=== PATIENT | male | born 1945 | race Caucasian/White ===

== ENCOUNTER 2016-08-22 03:47 | Inpatient (IN) | payer OTHER ==
--- NOTE | 2016-08-22 04:04 | EDPRACDOC ---
- General Information Stated Complaint: BREATHING DIFFICULTY Time Seen by Provider: 08/22/16 03:52 Information Source: Sql Database Programmer Mode Of Arrival: Ambulance Allergies/Adverse Reactions: Allergies Allergy/AdvReac Type Severity Reaction Status Date / Time No Known Allergies Allergy Verified 08/22/16 04:09 - History of Present Illness Onset: SPECIAL SERVICE OFFICER Exact Onset of Symptoms: Unknown HPI: EMS CALLED TO LONG TERM DUE TO MS CHANGE. O2 SAT 83% ON PT'S NL 3L. O2 INC TO 6L EN ROUTE. PT VERY SOMNOLENT AND IS UNABLE TO GIVE ANY HX. Symptoms Currently: Reports: Still Present Altered Quality: Reports: Decreased Alertness Altered Severity: Reports: Severe ED Past Medical History - Patient Medical History Cardiac History: Reports: Hypertension, Hypercholesterolemia Respiratory History: Reports: COPD (3L NC) GI/ History: Reports: Gastroesophageal Reflux, BPH Musculoskeletal History: Reports: Gout Psychological History: Reports: Depression, Anxiety Systemic History: Reports: Anemia Additional Past Medical History: DYSPHAGIA, IDIOPATHIC PROGRESSIVE POLYNEUROPATHY, CHRONIC PAIN, WHEELCHAIR BOUND, PVD Surgical History: Reports: Other (PT UNABLE TO SAY) - Social Medical History Smoking Status: Current status unknown Lives In: Other (LONG TERM) EDM Review of Systems - Review of Systems ROS Unobtainable: Yes Review of systems cannot be obtained due to the patient's medical condition - Physical Exam Constitutional: Decreased Consciousness, Somnolent Oriented to: Unable to Test Last recorded Vital Signs: Oxygen Pulse Oxygen Saturation O2 Device Oxygen Flow Rate Fraction of Inspired Oxygen ( FIO2) - HEENT Head: Normal ( normocephalic) Eye Exam: Normal (PERRL, EOMI, Sclera white) Oropharynx: Normal (Pharynx:Moist without exudate,Gums-no swelling) ENT EAC: Normal TMJ: Normal Nose: No Symptoms Reported (septum midline) Neck: Normal (FROM, trachea at midline) - Respiratory/Cardiovascular Respiratory: Normal - CTA (BBS clear to auscultation without adventitious sounds ) Cardiovascular: Normal (RRR without murmur, gallop or rub) - GI Auscultation: Normal (NABS) Palpation: Normal (Soft,No rebound or guarding, non distended) Tenderness: Non tender Bartholomew's Sign: Negative - Musculoskeletal Back: Normal (Non-Tender) Extremities: Normal (Normal tone, Pulses 2+ No cyanosis or edema, FROM) - Integumentary Skin: Normal, Warm, Dry Lymphatics: Normal (no adenopathy) - Neurologic Memory Impaired: Unable to Test Motor Function: Unable to Test Cranial Nerve: Unable to Test Cerebellar: Unable to Test - Results 08/22/16 04:00 08/22/16 04:00 - EKG EKG #1 EKG Time: 03:59 -: Yes EKG interpreted by me Rate: bpm: 62 [place]: Normal Rhythm: NSR Block: None Hypertrophy: None ST: Normal - Diagnostic Imaging Chest Image interpreted by: Radiologist 1. Very low lung volumes. No edema or visible pneumonia. 2. Gaseous bowel distention in the upper abdomen. Head Image interpreted by: Radiologist Negative motion degraded head CT. - Departure Yes I personally saw and evaluated the patient. Disposition: Admit IP To This Hospital Condition: Serious Final Diagnosis: Acute delirium, Hyponatremia, Leukocytosis Education/Counseling Given To: Patient Education/Counseling Given Regarding: Diagnosis, Treatment Referrals: None,No Provider [NonStaff] - One Week Decision to Admit Time: 05:33 Decision to admit date: 08/22/16 Decision to admit: from ED - Physician Consulted Hospitalist Provider Called: Fly Esparza
[2016-08-22 04:08] LABS: ABG Draw Site Right Radial; ALLEN'S TEST PASS; BEb 4.2 (+/- 2)
[2016-08-22 04:09] LABS: TCO2 31.8 MMOL/L (23-27)
[2016-08-22 04:10] LABS: MPV 6.7 fL (7.4-10.4)
[2016-08-22 04:21] LABS: PARTIAL THROMB. TIME 27.3 SEC (22-35); PT-INR 1.1
[2016-08-22 04:23] LABS: BLOOD UREA NITROGEN 21 MG/DL (9-20); CALCIUM 8.8 MG/DL (8.4-10.2); CALCULATED OSMOLALITY 227 MOs/Kg (270-290); CHLORIDE 76 mEq/L (98-107); GLUCOSE 109 MG/DL (70-99); TOTAL PROTEIN 7.4 G/DL (6.3-8.2)
[2016-08-22 04:24] LABS: SODIUM LEVEL 115 mEq/L (137-146)
--- NOTE | 2016-08-22 04:35 | DIRPT ---
CLINICAL DATA: Altered mental status EXAM: PORTABLE CHEST 1 VIEW COMPARISON: None. FINDINGS: Markedly low lung volumes, especially on the left where there is asymmetric diaphragm elevation. The heart is obscured with no suspected cardiomegaly. Unremarkable appearance of the aortic knob. There is no edema, visible consolidation, effusion, or pneumothorax. Diffuse gaseous distension of bowel seen in the upper abdomen. IMPRESSION: 1. Very low lung volumes. No edema or visible pneumonia. 2. Gaseous bowel distention in the upper abdomen. Electronically Signed By: Lj Yusuf M.D. On: 08/22/2016 04:33
[2016-08-22 05:02] LABS: SEG NEUTROPHIL 53 % (45-76)
--- NOTE | 2016-08-22 05:13 | DIRPT ---
CLINICAL DATA: Altered mental status. EXAM: CT HEAD WITHOUT CONTRAST TECHNIQUE: Contiguous axial images were obtained from the base of the skull through the vertex without intravenous contrast. COMPARISON: None. FINDINGS: Best obtainable study is moderately motion degraded due to patient condition. Skull and Sinuses:Negative for fracture or destructive process. The visualized mastoids, middle ears, and imaged paranasal sinuses are clear. Visualized orbits: Negative. Brain: No evidence of acute infarction, hemorrhage, hydrocephalus, or mass lesion/mass effect. IMPRESSION: Negative motion degraded head CT. Electronically Signed By: Lj Yusuf M.D. On: 08/22/2016 05:11
[2016-08-22 05:30] LABS: LEUKOCYTES/URINE NEG (NEGATIVE); NITRITE/URINE NEG (NEGATIVE); RBC/URINE 40-50 (0-2); URINE OCCULT BLOOD 2+ (NEG/TRACE); WBC/URINE 0-2 (0-2)
--- NOTE | 2016-08-22 05:39 | HISTPHYS ---
- Chief Complaint altered mental status - History of Present Illness PRIMARY CARE PHYSICIAN: [facility] physician HPI: The patient is a 71 yo man with CIDP who is brought to the emergency department due to altered mental status. The patient is currently obtunded and cannot give any history, so history is obtained from the records and the emergency department staff. Apparently the patient has been somnolent over the last 3 days, has been less talkative, has not been eating. He has not been out of bed much. EMS found patient to be hypoxic with an O2 sat of 83% on his home 3L NC. Onset: about 3 days ago. Duration: progressively worsening. Location: generalized weakness. Character: weakness, somnolence, decreased interaction. Alleviated by nothing. Exacerbated by nothing. Associated symptoms: Somnolence. Paucity of speech. Decreased movement. Minimal PO intake. Per report, patient did not complain about chest pain, abdominal pain, or shortness of breath. Treatments: none except usual medications. - Medical History Cardiac History: Reports: Hypertension, Hypercholesterolemia (and peripheral vascular disease) Respiratory History: Reports: Asthma (Cough variant asthma. 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)) Psychological History: Reports: Depression, Anxiety - Surgical History Reports: Other (PT UNABLE TO SAY) - Medictions/Allergies Allergies No Known Allergies Allergy (Verified 08/22/16 04:09) Current Medication List: Reviewed - Family History Reports: Hypertension - Social History Smoking Status: Former smoker Social History: Denies: Alcohol Use, Substance Use Disorder - Review of Systems Yes Review of systems cannot be obtained due to the patient's medical condition - Physical Exam Vital Signs: Initial Vitals Temperature 98.4 F 08/22/16 04:09 Pulse Rate 61 08/22/16 04:09 Respiratory Rate 22 08/22/16 04:09 Blood Pressure 182/77 H 08/22/16 04:09 Pulse Oxygen Saturation 92 08/22/16 04:09 Vital Signs - 24 hr 08/22/16 08/22/16 08/22/16 04:09 04:29 05:01 Temperature 98.4 F Pulse Rate 61 77 Respiratory 22 22 24 Rate Blood Pressure 182/77 H 202/100 H Pulse Oxygen 92 99 Saturation 08/22/16 05:20 Temperature Pulse Rate 61 Respiratory 22 Rate Blood Pressure 155/82 Pulse Oxygen 100 Saturation Weight: 81.6 kg Height: 5 feet 10 inches BMI: 25.8 - Other Exam Other Exam Findings: GENERAL: Ill-appearing, well nourished, in acute distress. HEENT: Normocephalic, atraumatic; pupils equal and round. Small pupil size, but reactive to light. Nares patent, without discharge or bleeding. No oropharyngeal lesions or erythema. Mucous membranes are dry. NECK: is supple, no masses, trachea midline. RESPIRATORY: Clear to auscultation bilaterally. Chest wall movements are symmetric. No use of accessory muscles to breathe. Decreased breath sounds bilaterally. No wheezing, rales, rhonchi. CARDIOVASCULAR: Normal S1, S2. Murmur 2/6 systolic. No rubs, or gallops. PMI non -displaced. Carotids: no carotid bruits. No bradycardia or tachycardia. DP pulses 1-2+ bilaterally. GI: soft, nontender, non-distended, normal active bowel sounds. No hepatosplenomegaly. INTEGUMENT: Clean, dry, and intact. Ulcers and skin lesions. MUSCULOSKELETAL: No cyanosis. No clubbing. Edema: 1+ lower extremity edema bilaterally. NEUROLOGICAL: Cranial nerves 2-12 grossly intact, as best can be determined in this patient who does not follow commands. Reflexes: 2+ bilaterally. Babinski: toes downgoing bilaterally. Further neurologic exam could not be performed due to the medical condition of the patient. PSYCHIATRIC: Not oriented. Obtunded. Not speaking. Not following commands. Will pull away with eye examination. LYMPHATIC: No cervical lymphadenopathy. No supraclavicular lymphadenopathy. - Lab Results Laboratory Results - last 24 hr 08/22/16 08/22/16 08/22/16 04:00 04:00 04:00 WBC 19.3 H RBC 4.41 L Hgb 14.4 Hct 42.3 MCV 96 H MCH 32.6 H MCHC 34.0 RDW 14.6 H Plt Count 242 MPV 6.7 L Neut % (Auto) Cancelled Lymph % (Auto) Cancelled [place] % (Auto) Cancelled Eos % (Auto) Cancelled Baso % (Auto) Cancelled Absolute Neuts (auto) Cancelled Absolute Lymphs (auto) Cancelled Seg Neuts % (Manual) 53 Lymphocytes % (Manual) 47 H Absolute Lymphocytes 9.07 H Atypical Lymphocytes Few Toxic Granulation 1+ Platelet Estimate Norm RBC Morphology 1+ aniso PT INR APTT Puncture Site pH pCO2 pO2 HCO3 Total CO2 Base Excess FiO2 % Specimen Drawn By Sodium 115 L* Potassium 4.2 Chloride 76 L Carbon Dioxide 30 Anion Gap 13 BUN 21 H Creatinine 0.80 Estimated GFR (MDRD) > 60 Glucose 109 H Calculated Osmolality 227 L Lactic Acid 1.0 Calcium 8.8 Total Bilirubin 1.4 H AST 70 H ALT 44 Alkaline Phosphatase 74 Troponin I < 0.01 Total Protein 7.4 Albumin 4.3 Urine Color Urine Clarity Urine pH Ur Specific [place] Urine Protein Urine Glucose (UA) Urine Ketones Urine Occult Blood Urine Nitrite Urine Bilirubin Urine Urobilinogen Ur Leukocyte Esterase Urine RBC Urine WBC Urine Bacteria Urine Mucus 08/22/16 08/22/16 08/22/16 04:00 04:02 05:08 WBC RBC Hgb Hct MCV MCH MCHC RDW Plt Count MPV Neut % (Auto) Lymph % (Auto) [place]isco[place] % (Auto) Eos % (Auto) Baso % (Auto) Absolute Neuts (auto) Absolute Lymphs (auto) Seg Neuts % (Manual) Lymphocytes % (Manual) Absolute Lymphocytes Atypical Lymphocytes Toxic Granulation Platelet Estimate RBC Morphology PT 11.4 H INR 1.1 APTT 27.3 Puncture Site Right radial pH 7.390 pCO2 50.0 H pO2 70.0 L HCO3 30.3 H Total CO2 31.8 H Base Excess 4.2 H FiO2 % 21 Specimen Drawn By Rakma Sodium Potassium Chloride Carbon Dioxide Anion Gap BUN Creatinine Estimated GFR (MDRD) Glucose Calculated Osmolality Lactic Acid Calcium Total Bilirubin AST ALT Alkaline Phosphatase Troponin I Total Protein Albumin Urine Color Yellow Urine Clarity Clear Urine pH 6.0 Ur Specific [place] 1.010 Urine Protein 1+ H Urine Glucose (UA) Neg Urine Ketones 1+ H Urine Occult Blood 2+ H Urine Nitrite Neg Urine Bilirubin Neg Urine Urobilinogen <2.0 Ur Leukocyte Esterase Neg Urine RBC 40-50 H Urine WBC 0-2 Urine Bacteria Few Urine Mucus Occ - Diagnostic Findings EK beats per minute. Normal sinus rhythm. Flat T-wave in lead V6. Reviewed EKG personally. Chest x-ray, viewed personally: EXAM: PORTABLE CHEST 1 VIEW COMPARISON: None. FINDINGS: Markedly low lung volumes, especially on the left where there is asymmetric diaphragm elevation. The heart is obscured with no suspected cardiomegaly. Unremarkable appearance of the aortic knob. There is no edema, visible consolidation, effusion, or pneumothorax. Diffuse gaseous distension of bowel seen in the upper abdomen. IMPRESSION: 1. Very low lung volumes. No edema or visible pneumonia. 2. Gaseous bowel distention in the upper abdomen. Head CT: EXAM: CT HEAD WITHOUT CONTRAST TECHNIQUE: Contiguous axial images were obtained from the base of the skull through the vertex without intravenous contrast. COMPARISON: None. FINDINGS: Best obtainable study is moderately motion degraded due to patient condition. Skull and Sinuses:Negative for fracture or destructive process. The visualized mastoids, middle ears, and imaged paranasal sinuses are clear. Visualized orbits: Negative. Brain: No evidence of acute infarction, hemorrhage, hydrocephalus, or mass lesion/mass effect. IMPRESSION: Negative motion degraded head CT. - Assessment (1) Metabolic encephalopathy G93.41 - METABOLIC ENCEPHALOPATHY Acute Present on Admission: Yes Etiology unclear. Plan: MRI head and Ultrasound of carotids in the AM. NPO until speech therapy evaluation. Neuro checks q 4 hours. Telemetry. Daily aspirin. Statin. Check lipid levels. Investigate underlying cause. (2) Hyponatremia E87.1 - HYPO-OSMOLALITY AND HYPONATREMIA Acute Present on Admission: Yes Etiology unclear. Unknown if this is acute or chronic. Could be contributing to his encephalopathy. Plan: Trial of IV fluids. Check osmolality. Measure sodium levels. (3) Leukocytosis D72.829 - ELEVATED WHITE BLOOD CELL COUNT, UNSPECIFIED Acute Present on Admission: Yes No obvious source of infection on admission. Plan: Cultures ordered. Further treatment depending on course. (4) CIDP (chronic inflammatory demyelinating polyneuropathy) G61.81 - CHRONIC INFLAMMATORY DEMYELINATING POLYNEURITIS Chronic Present on Admission: Yes Is a chronic issue. May be worsening. Plan: Consider neurology consult. (5) Dyspnea R06.00 - DYSPNEA, UNSPECIFIED Acute Present on Admission: Yes Plan: O2 by NC prn. - Plan (1) Metabolic encephalopathy G93.41 - METABOLIC ENCEPHALOPATHY Acute Present on Admission: Yes Etiology unclear. Plan: MRI head and Ultrasound of carotids in the AM. NPO until speech therapy evaluation. Neuro checks q 4 hours. Telemetry. Daily aspirin. Statin. Check lipid levels. Investigate underlying cause. (2) Hyponatremia E87.1 - HYPO-OSMOLALITY AND HYPONATREMIA Acute Present on Admission: Yes Etiology unclear. Unknown if this is acute or chronic. Could be contributing to his encephalopathy. Plan: Trial of IV fluids. Check osmolality. Measure sodium levels. (3) Leukocytosis D72.829 - ELEVATED WHITE BLOOD CELL COUNT, UNSPECIFIED Acute Present on Admission: Yes Qualifiers: Leukocytosis type: L No obvious source of infection on admission. Plan: Cultures ordered. Further treatment depending on course. (4) CIDP (chronic inflammatory demyelinating polyneuropathy) G61.81 - CHRONIC INFLAMMATORY DEMYELINATING POLYNEURITIS Chronic Present on Admission: Yes Is a chronic issue. May be worsening. Plan: Consider neurology consult. (5) Dyspnea R06.00 - DYSPNEA, UNSPECIFIED Acute Qualifiers: Dyspnea type: D Plan: O2 by [place] prn. In summary, this patient is acutely and critically ill. The patient requires treatment of vital organ failure and measures to prevent further life- threatening deterioration of condition. Reviewed previous records. I have spent 60 min in the critical care of this patient. Case Care Discussed with: Patient, Nursing Staff Total Time: 60 min Critical Care: Yes Code: 291
[2016-08-22] MEDS ORDERED: NS 1,000 ML IV ONE (06:05)
[2016-08-22] MEDS ORDERED: PIPERACILLIN AND TAZOBACTAM 4.5 GM in D5W 100 ML IV ONE (06:07)
[2016-08-22] MEDS ORDERED: ONDANSETRON HCL 4 MG/2 ML VIAL IV PRN (06:16)
[2016-08-22] MEDS ORDERED: BISACODYL 5 MG TAB PO PRN (06:16)
[2016-08-22] MEDS ORDERED: ACETAMINOPHEN 325 MG SUPP PR PRN (06:16)
[2016-08-22] MEDS ORDERED: BENZONATATE 100 MG PERLES PO PRN (06:16)
[2016-08-22] MEDS ORDERED: Aluminum;Magnesium;Simethicone 30 ML UDC PO PRN (06:16)
[2016-08-22] MEDS ORDERED: GUAIFEN 100 MG-DEXTROMETH 10 MG PER 5 ML PO PRN (06:16)
[2016-08-22] MEDS ORDERED: SENNA CONCENTRATE TAB PO PRN (06:16)
[2016-08-22] MEDS ORDERED: PROMETHAZINE 25 MG/ML VIAL IV PRN (06:16)
[2016-08-22 06:36] LABS: ALL NEG? YES; MDMA* NEG (NEGATIVE); METHAMPHETAMINES NEG (NEGATIVE); OXYCODONE NEG (NEGATIVE)
[2016-08-22] MEDS ORDERED: Pharmacy Review for Metformin - IV Contrast Given SCH (07:00)
[2016-08-22] MEDS ORDERED: PETROLATUM TOP SCH ×2 (07:00→22:00)
[2016-08-22] MEDS ORDERED: ARTIFICIAL TEARS OPH SOLN 15 ML OU SCH (07:00)
[2016-08-22] MEDS: PENTOXIFYLLINE 400 MG TAB PO SCH ×3 (08:42→16:27)
--- NOTE | 2016-08-22 08:42 | DIRPT ---
CLINICAL DATA: Tachypnea, obtunded, leukocytosis EXAM: CT ANGIOGRAPHY CHEST CT ABDOMEN AND PELVIS WITH CONTRAST TECHNIQUE: Multidetector CT imaging of the chest was performed using the standard protocol during bolus administration of intravenous contrast. Multiplanar CT image reconstructions and MIPs were obtained to evaluate the vascular anatomy. Multidetector CT imaging of the abdomen and pelvis was performed using the standard protocol during bolus administration of intravenous contrast. CONTRAST: 100 mL Isovue 370 COMPARISON: Chest radiograph performed earlier today FINDINGS: CTA CHEST FINDINGS Mediastinum/Nodes: No filling defects in the pulmonary artery system. With pulmonary arteries measuring 3.1 on the left at 3.5 cm on the right. No significant hilar or mediastinal adenopathy. No significant pleural fluid component. Thoracic aorta shows no dissection or dilatation. There is mild to moderate calcification of the arch and descending aorta. Although no filling defects are seen in the pulmonary arterial system, evaluation of the lower lobe pulmonary artery peripheral branches is limited due to significant bilateral lower lobe consolidation. Lungs/Pleura: With bilateral lower lobe consolidation which appears to be due to atelectasis related to very limited inspiratory effect. The lungs are otherwise clear. There is no pleural effusion. Musculoskeletal: The the osseous thorax is intact. CT ABDOMEN and PELVIS FINDINGS Hepatobiliary: 12 mm low-attenuation lesion lateral left lobe of the liver with average attenuation value of 30. Gallbladder appears normal. Pancreas: Normal Spleen: Normal Adrenals/Urinary Tract: Adrenal glands are normal. Kidneys are normal. No hydronephrosis. Bladder is normal. Stomach/Bowel: Stomach is mildly distended. There are loops of left upper quadrant small bowel showing wall thickening to 9 mm. These loops are within normal limits with a diameter of 3 cm. There are loops of small bowel in the right lower quadrant distended to 3.5 cm in diameter, also showing some small bowel wall thickening to a diameter of about 5 mm. There is air in the colon with air-fluid levels to the level of the splenic flexure. Descending colon through rectum decompressed with fluid into the rectum. Appendix is normal. No pneumatosis. Vascular/Lymphatic: Moderate atherosclerotic calcification of the abdominal aorta. Mild infrarenal abdominal aortic dilatation to a diameter of 3.2 cm. Iliac artery calcification bilaterally. Reproductive: No acute findings Other: Evaluation of the abdomen is limited in detail due to patient combativeness and motion as well as beam hardening artifact related to positioning of patient arms. In particular, evaluation of the bowel is limited. Musculoskeletal: No acute findings. Grade 1 anterior listhesis of L5 on the sacrum due to chronic appearing bilateral L5-S1 pars defects. Review of the MIP images confirms the above findings. IMPRESSION: 1. Moderate bilateral lower lobe consolidation appears most consistent with hypoventilatory atelectasis. This limits evaluation of the pulmonary arterial system in the lower lobes. 2. Allowing for limitations described above, no evidence of pulmonary arterial embolism 3. Limited evaluation of the abdomen and pelvis for the reasons described above. Limitation is of moderate severity particularly in evaluation of bowel. There is small bowel wall thickening both in the left upper and right lower quadrants. There is also mild small bowel dilatation. Findings do not appear particularly suggestive of obstruction. Diffuse ileus is suspected. Small bowel wall thickening may be due to infection with other considerations including hypoproteinemia, amyloid, hypotension, etc., with focal ischemia unlikely given diffuse multifocal pattern. 4. Pulmonary arteries mildly prominent centrally. Mild abdominal aortic dilitation. Recommend followup by ultrasound in 3 years. This recommendation follows ACR consensus guidelines: White Paper of the ACR Incidental Findings Committee II on Vascular Findings. J Am Jaz Radiol 2013; 10:789-794 Electronically Signed By: Jf Taylor M.D. On: 08/22/2016 08:39
[2016-08-22] MEDS: PETROLATUM TOP SCH ×2 (08:44→21:13)
[2016-08-22] MEDS: TAMSULOSIN HCL 0.4 MG CAP PO SCH (08:45)
[2016-08-22] MEDS: AZATHIOPRINE 50 MG TAB PO SCH ×2 (08:46→20:17)
[2016-08-22] MEDS: SERTRALINE HCL 100 MG TAB PO SCH (08:47)
[2016-08-22] MEDS: NYSTATIN CREAM 15 GM TUBE TOP SCH ×2 (08:47→20:17)
[2016-08-22] MEDS: ATENOLOL 25 MG TAB PO SCH (08:47)
[2016-08-22] MEDS: ARTIFICIAL TEARS OPH SOLN 15 ML OU SCH ×4 (08:48→20:37)
[2016-08-22] MEDS: CETIRIZINE HCL 10 MG TAB PO SCH (08:48)
[2016-08-22] MEDS ORDERED: MINERAL OIL TOP SCH (09:00)
[2016-08-22] MEDS ORDERED: [UNRECOGNIZED DRUG - REMARK] PO SCH (09:00)
[2016-08-22] MEDS ORDERED: FERROUS GLUCONATE 324 MG PO SCH (09:00)
[2016-08-22] MEDS ORDERED: PETROLATUM WHITE TOP SCH (09:00)
[2016-08-22] MEDS ORDERED: CHLORHEXIDINE (HIBICLENS) 4 OZ BOTTLE TOP SCH (09:00)
[2016-08-22] MEDS ORDERED: NYSTATIN CREAM 15 GM TUBE TOP SCH (09:00)
[2016-08-22] MEDS: NS 1,000 ML IV SCH ×2 (10:47→20:18)
[2016-08-22] MEDS: FERROUS SULFATE 324 MG TAB PO SCH ×2 (10:57→16:27)
[2016-08-22] MEDS: GABAPENTIN 400 MG CAP PO SCH ×2 (10:57→20:22)
[2016-08-22] MEDS: TRAMADOL HCL 50 MG TAB PO SCH ×2 (10:58→20:17)
[2016-08-22] MEDS: SIMETHICONE 80 MG TAB PO SCH ×2 (10:58→20:17)
[2016-08-22] MEDS ORDERED: Vaccine Screening Complete SCH (12:00)
[2016-08-22 14:16] LABS: BLOOD UREA NITROGEN 18 MG/DL (9-20); CALCIUM 8.8 MG/DL (8.4-10.2); CALCULATED OSMOLALITY 230 MOs/Kg (270-290); CHLORIDE 78 mEq/L (98-107); GLUCOSE 110 MG/DL (70-99)
[2016-08-22 14:23] LABS: SODIUM LEVEL 117 mEq/L (137-146)
[2016-08-22] MEDS: PIPERACILLIN AND TAZOBACTAM 4.5 GM in D5W 100 ML IV SCH ×2 (14:27→21:03)
[2016-08-22] MEDS: OXYCODONE HCL 5 MG TABLET PO PRN (14:31)
[2016-08-22] MEDS: ACETAMINOPHEN 325 MG/TAB TABLET PO PRN (16:27)
[2016-08-22] MEDS: ATORVASTATIN 40 MG TAB PO SCH (16:27)
[2016-08-22] MEDS: ENOXAPARIN 40 MG/0.4 ML PFS SQ SCH (16:28)
[2016-08-22] MEDS: MORPHINE 2 MG/ML INJECTION IV PRN (18:00)
[2016-08-23] MEDS: ARTIFICIAL TEARS OPH SOLN 15 ML OU SCH ×7 (02:32→23:37)
[2016-08-23] MEDS: NS 1,000 ML IV SCH ×4 (04:52→21:18)
[2016-08-23] MEDS: SIMETHICONE 80 MG TAB PO SCH ×3 (04:53→21:25)
[2016-08-23] MEDS: PIPERACILLIN AND TAZOBACTAM 4.5 GM in D5W 100 ML IV SCH ×3 (04:53→21:18)
[2016-08-23] MEDS: TRAMADOL HCL 50 MG TAB PO SCH ×3 (04:53→21:24)
[2016-08-23] MEDS: GABAPENTIN 400 MG CAP PO SCH ×3 (04:54→21:23)
--- NOTE | 2016-08-23 08:08 | DIRPT ---
CLINICAL DATA: Mental status changes and hypertension. EXAM: BILATERAL CAROTID DUPLEX ULTRASOUND TECHNIQUE: Herzog scale imaging, color Doppler and duplex ultrasound were performed of bilateral carotid and vertebral arteries in the neck. COMPARISON: None. FINDINGS: Criteria: Quantification of carotid stenosis is based on velocity parameters that correlate the residual internal carotid diameter with NASCET-based stenosis levels, using the diameter of the distal internal carotid lumen as the denominator for stenosis measurement. The following velocity measurements were obtained: RIGHT ICA: 85/24 cm/sec CCA: 99/7 cm/sec SYSTOLIC ICA/CCA RATIO: 0.9 DIASTOLIC ICA/CCA RATIO: 3.3 ECA: 96 cm/sec LEFT ICA: 114/28 cm/sec CCA: 153/16 cm/sec SYSTOLIC ICA/CCA RATIO: 0.8 DIASTOLIC ICA/CCA RATIO: 1.8 ECA: 98 cm/sec RIGHT CAROTID ARTERY: There is a moderate amount of predominately calcified plaque at the level of the carotid bulb and proximal ICA. Velocities and waveforms are unremarkable and estimated right ICA stenosis is less than 50%. The more distal aspect of the visualized internal carotid artery is tortuous. RIGHT VERTEBRAL ARTERY: Antegrade flow with normal waveform and velocity. LEFT CAROTID ARTERY: The common carotid artery is significantly tortuous. There is a mild to moderate amount of predominately calcified plaque at the level of the distal bulb and proximal ICA. Velocities and waveforms are normal and estimated left ICA stenosis is less than 50%. LEFT VERTEBRAL ARTERY: Antegrade flow with normal waveform and velocity. IMPRESSION: Calcified plaque at the level of both carotid bulbs and proximal ICAs, right greater than left. No significant carotid stenosis identified with estimated bilateral ICA stenoses of less than 50%. Electronically Signed By: Don Berman M.D. On: 08/23/2016 08:05
[2016-08-23] MEDS: CETIRIZINE HCL 10 MG TAB PO SCH (09:04)
[2016-08-23] MEDS: TAMSULOSIN HCL 0.4 MG CAP PO SCH (09:04)
[2016-08-23] MEDS: ATENOLOL 25 MG TAB PO SCH (09:04)
[2016-08-23] MEDS: SERTRALINE HCL 100 MG TAB PO SCH (09:04)
[2016-08-23] MEDS: PENTOXIFYLLINE 400 MG TAB PO SCH ×3 (09:04→17:17)
[2016-08-23] MEDS: AZATHIOPRINE 50 MG TAB PO SCH ×2 (09:05→21:20)
[2016-08-23] MEDS: FERROUS SULFATE 324 MG TAB PO SCH ×2 (09:05→17:16)
[2016-08-23] MEDS: PETROLATUM TOP SCH ×2 (09:05→21:28)
[2016-08-23] MEDS: NYSTATIN CREAM 15 GM TUBE TOP SCH ×2 (09:06→21:29)
[2016-08-23] MEDS ORDERED: LORAZEPAM 2 MG/ML VIAL IV ONE (09:26)
--- NOTE | 2016-08-23 15:52 | GENMEDPROG ---
Chief Complaint: More alert today. Still restless agitated. He was unable to sit still for brain MRI. Extremely poor historian. Less ill appearing today Notes Reviewed: Yes: Events from last night noted and discussed with Clinical Staff Current Medication List: Reviewed Currently: Denies: Cough, Wheezing, [place], SOB - Physical Examination Vital Signs and I&O: Last Vital Signs Temp 98.0 F 08/23/16 15:49 Pulse 72 08/23/16 15:49 Resp 18 08/23/16 15:49 BP 156/72 08/23/16 15:49 Pulse Ox 94 08/23/16 15:49 Oxygen Pulse Oxygen Saturation 94 O2 Device Nasal Cannula Oxygen Flow Rate 4 Fraction of Inspired Oxygen ( FIO2) Intake & Output 08/20/16 08/21/16 08/22/16 08/23/16 23:59 23:59 23:59 23:59 Intake Total 2228 1751 Output Total 1525 1600 Balance 703 151 Patient's weight 83.234 kg 83.518 kg General: Alert, Oriented x3, Moderate distress. negative: Well appearing ( Chronically ill-appearing) HEENT: Normal, PERRLA, EOMI Neck: Non-tender, Full range of motion, Normal Trachea alignment, Normal inspection. negative: JVD Lymphatics: Normal (no adenopathy) Respiratory: Normal - CTA (BBS clear to auscultation without adventitious sounds ) Cardiovascular: Regular rate and rhythm, No Gallops,Rubs/Murmurs GI: Normal bowel sounds, Soft, Non tender Extremities/Musculoskeletal: Other (Contracted) Skin: Warm,Dry and Intact, No rashes, No breakdown Neurological: Normal speech, Strength at 5/5 X4 ext, Normal tone, Cranial nerves 3-12 NL Psych/Mental Status: Appropriate, Normal Affect, Cooperative - Assessment (1) Acute delirium Acute R41.0 - DISORIENTATION, UNSPECIFIED Comment/Plan: Still restless and agitated but not nearly as severe as yesterday. Etiology is unclear possibly related to underlying degenerative neuro issues. No clear infection at this time (2) Hyponatremia Acute E87.1 - HYPO-OSMOLALITY AND HYPONATREMIA Comment/Plan: Slightly better. Continue to monitor. Continue IV fluids. Recheck in a.m. (3) Leukocytosis Acute D72.829 - ELEVATED WHITE BLOOD CELL COUNT, UNSPECIFIED Qualifiers: Leukocytosis type: unspecified Qualified Code(s): D72.829 - Elevated white blood cell count, unspecified Comment/Plan: No clear source of infection. Etiology unclear. Unable to get any useful history from him. He does have a degenerative neurological condition. No clear seizure activity (4) Metabolic encephalopathy Acute G93.41 - METABOLIC ENCEPHALOPATHY Comment/Plan: Unable to tolerate MRI. Ultrasound of carotids is negative. He is much more alert and interactive though restless and agitated. Unclear what his baseline is. (5) CIDP (chronic inflammatory demyelinating polyneuropathy) Chronic G61.81 - CHRONIC INFLAMMATORY DEMYELINATING POLYNEURITIS Comment/ Plan: Suspicious that this may be the etiology of his decline. Continue to monitor Case Care Discussed with: Patient, Nursing Staff, Physical Therapy, Resource Management, Respiratory Therapy, Tie Presser
[2016-08-23] MEDS: OXYCODONE HCL 5 MG TABLET PO PRN (17:16)
[2016-08-23] MEDS: ATORVASTATIN 40 MG TAB PO SCH (17:17)
[2016-08-23] MEDS: ENOXAPARIN 40 MG/0.4 ML PFS SQ SCH (17:17)
--- NOTE | 2016-08-23 18:22 | PCM.NEUCO ---
Consultation Date: 08/23/16 Requesting Physician: Fly Esparza Consulting Doctor: Andrea Cohn Reason For Consult: Mental Status Changes 71 yom with metabolic encephalopathy from severe, recurrent hyponatremia of unknown origin. 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 - Past Medical and Surgical History Cardiac History: Reports: Hypertension, Hypercholesterolemia (and peripheral vascular disease), Syncope Respiratory History: Reports: Asthma (Cough variant asthma. Allergic rhinitis.) , COPD (3L NC) GI/ History: Reports: Gastroesophageal Reflux (and chronic dysphagia), BPH Systemic History: Reports: Anemia (Iron deficiency) Musculoskeletal History: Reports: Arthritis, Gout Psychological History: Reports: Depression, Anxiety. Denies: Alcoholism, Substance Use Disorder Neurological History: Denies: Myasthenia Gravis (BUT DOES HAVE CIDP (Chronic Inflammatory Demyelinating Polyneuropathy)) Past Surgical History: Reports: Other (PT UNABLE TO SAY) Allergies No Known Allergies Allergy (Verified 08/22/16 04:09) Home Medications Artificial Tears 1 drops OU Q4 08/22/16 Aspirin (Enteric Coated) [Ecotrin] 81 mg PO 0700 08/22/16 Atenolol 25 mg PO 0700 08/22/16 Azathioprine 100 mg PO 0700,1600 08/22/16 Bisacodyl [Laxative] 10 mg PO DAILY PRN 08/22/16 CYANOCOBALAMIN (Vitamin B-12) [Vitamin B-12] 1,000 mcg IM .MONTHLY 08/22/16 Cetirizine HCl [Allergy Relief] 10 mg PO 0700 08/22/16 Chlorhexidine Gluconate [Hibiclens] 240 ml TP 0700 08/22/16 Famotidine 20 mg PO 1200,1900 08/22/16 Ferrous Gluconate 324 mg PO 0700,1600 08/22/16 Furosemide 20 mg PO Q48H 08/22/16 Gabapentin 1,200 mg PO 0700,1500,2000 08/22/16 Guaifenesin [Guaifenesin ER] 1,200 mg PO BID PRN 08/22/16 HydrOXYzine Pamoate (Anxiety) [Vistaril] 50 mg PO 0700,1600 08/22/16 Hydrochlorothiazide 12.5 mg PO 0700 08/22/16 Lactulose 30 ml PO BID PRN 08/22/16 Methylcellulose [Fiber] 1,250 mg PO DAILY 08/22/16 Mineral Oil/Petrolatum,White [Hydrocerin Cream] 1 nuria TOP 0700,1600 08/22/16 Nystatin [Mycostatin] 1 applic TOP 0700,1600 08/22/16 Pentoxifylline [Trental] 400 mg PO 0700,1100,1600 08/22/16 Personal Cleans Wipes/Aloe 1 each TOP . DIR PRN 08/22/16 Promethazine HCl 25 mg PO .[id number] PRN 08/22/16 Sertraline HCl 200 mg PO 0700 08/22/16 Simethicone [Mytab Gas] 160 mg PO 0700,1100,1600 08/22/16 Simvastatin 20 mg PO 0700 08/22/16 Sulfamethoxazole/Trimethoprim [Bactrim Ds Tablet] 1 tab PO BID 08/22/16 Tamsulosin HCl [Flomax] 0.4 mg PO 0700 08/22/16 Tramadol HCl 100 mg PO 0700,1500,1900 08/22/16 - Social History Travel Outside of [place] in the Last 3 Months?: No Smoking Status: Former smoker Social History: Denies: Alcohol Use, Substance Use Disorder - Family History Reports: Hypertension. Denies: Diabetes, Cancer, Stroke, Cardiac Disorders - Review of Systems Constitutional: Weakness, Other (pain) Eyes: Blurred Vision, Double Vision Ears: No Symptoms Reported Nose: No Symptoms Reported Mouth: No Symptoms Reported Throat/Neck: No Symptoms Reported Respiratory: Shortness of Breath Cardiovascular: No Symptoms Reported Gastrointestinal: Nausea Genitourinary: No Symptoms Reported Neurological: Numbness, Speech Difficulty, Weakness Musculoskeletal:: Muscle Pain (chronic pain) Integumentary: Ulcers Allergic/Immunologic: No Symptoms Reported Hematologic: No Symptoms Reported Endocrine: Heat Intolerance Psychiatric: Anxiety, Depression - Physical Exam Vital Signs: Initial Vitals Temperature 98.4 F 08/22/16 04:09 Pulse Rate 61 08/22/16 04:09 Respiratory Rate 22 08/22/16 04:09 Blood Pressure 182/77 H 08/22/16 04:09 Pulse Oxygen Saturation 92 08/22/16 04:09 Constitutional: Alert, Restless Oriented to: Person, Place - HEENT Head: Normal Eye: Normal Oropharynx: Normal TMJ: Normal Nose: No Symptoms Reported Respiratory: Accessory Muscle Use, Diminished Cardiovascular: Normal - GI Tenderness: Diffuse Rectal Exam: Deferred - Exam Deferred: Yes - Musculoskeletal Back: CVA Tenderness Spine: painful range of motion, paraspinous muscle tender - Integumentary Skin: Warm, Dry, Mottling - Mental Status Orientation: Person, Place Speech: Dysarthria Coginitive: Follows Commands Motor Function: Abnormal (pt has lost use of his hands and has severe weakness 2 /5 in his forearms and 3/5 weakness proximally. In his LE his left leg shows 1/ 5 weakness distally and 3/5 proximally. right leg shows 4/5 weakness throughout.) Affect: Agitated Thought: Coherent Perception: Normal - Sensory Sensory: Mild to Mod Sensory Loss Sensory: Left Upper Extremity, Right Upper Extremity, Left Lower Extremity - Reflex Babinski Reflex Response: Absent Bilateral Reflexes: Absent 0: Right Bicep, Left Bicep, Left Tricep, Right Tricep, Left Brachioradialis, Right Brachioradialis, Left Patellar, Right Patellar, Left Achilles, Right Achilles - Coordination Finger to Nose Test: Activity Impossible Alternate Nose to Finger Test: Activity Impossible Heel on [place] Test: Activity Impossible (EOM - dysconjugate gaze with resulting diplopia. pupils 4mm - 2mm bilaterally. VF full. Fundi not visualized.) - Lab Results Laboratory Tests 08/22/16 08/22/16 08/22/16 04:00 04:00 04:00 WBC 19.3 H Hgb 14.4 INR 1.1 pCO2 pO2 Sodium 115 L* BUN 21 H Calcium 8.8 Total Bilirubin 1.4 H AST 70 H ALT 44 Alkaline Phosphatase 74 Ammonia Total Protein 7.4 Urine WBC 08/22/16 08/22/16 08/22/16 04:02 05:08 08:39 WBC Hgb INR pCO2 50.0 H pO2 70.0 L Sodium 113 L* BUN Calcium Total Bilirubin AST ALT Alkaline Phosphatase Ammonia Total Protein Urine WBC 0-2 08/22/16 08/22/16 08:39 13:45 WBC Hgb INR pCO2 pO2 Sodium 117 L* BUN 18 Calcium 8.8 Total Bilirubin AST ALT Alkaline Phosphatase Ammonia < 9.0 L Total Protein Urine WBC - Diagnostic Findings Carotid Doppler results: IMPRESSION: Calcified plaque at the level of both carotid bulbs and proximal ICAs, right greater than left. No significant carotid stenosis identified with estimated bilateral ICA stenoses of less than 50%. CT head results: IMPRESSION: Negative motion degraded head CT. - Assessment/Plan (1) CIDP (chronic inflammatory demyelinating polyneuropathy) G61.81 - CHRONIC INFLAMMATORY DEMYELINATING POLYNEURITIS Chronic Present on Admission: Yes Comment: Pt brought in for unresponsiveness and not eating for 2-3 days. He says he did not sleep for 5 days because he was too hot. On admission his sodium level was 115. He has recurrent bouts of severe hyponatremia for unkown reasons. He is not much more alert and interactive as his sodium has improved. He also has CIDP that is severe and untreated because he refuses the standard treatment which is IVIG infusion every 2-4 weeks. He said he refuses because he has to be transported to [facility] for each infusion and felt it quit working and therefore not worth the trip. 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 It could have some secondary effect on cognition through respiratory weakness and subsequent hypoxia. His main cognitive problem is the metabolic/toxic encephalopathy from hyponatremia and possibly from his tramadol and neurontin. He has recovered sufficiently tonight to complain bitterly about not getting his tramadol and neurontin. He was noncommittal about restarting his IVIG. He could not stay still for his MRI. would try again tomorrow to make sure he has not had a stroke or other structural lesion. May reintroduce his pain medications slowly. Case Care Discussed with: Patient, Other Plan: 71 yom with metabolic encephalopathy including severe hyponatremia. Pt also has severe CIDP. 1. Retry for brain MRI tomorrow. 2. continue correction of metabolic derangements including sodium. 3. Encourage him to consider restarting IVIG treatment. 4. May slowly reintroduce pain medications.
[2016-08-23] MEDS: TEMAZEPAM 15 MG CAP PO PRN (21:26)
[2016-08-23] MEDS: ACETAMINOPHEN 325 MG/TAB TABLET PO PRN (23:59)
[2016-08-24] MEDS: TEMAZEPAM 15 MG CAP PO PRN
[2016-08-24] MEDS: GABAPENTIN 400 MG CAP PO SCH ×3 (04:16→21:15)
[2016-08-24] MEDS: TRAMADOL HCL 50 MG TAB PO SCH ×3 (04:16→21:17)
[2016-08-24] MEDS: SIMETHICONE 80 MG TAB PO SCH ×3 (04:17→21:17)
[2016-08-24] MEDS: PIPERACILLIN AND TAZOBACTAM 4.5 GM in D5W 100 ML IV SCH ×3 (04:17→21:17)
[2016-08-24] MEDS: ARTIFICIAL TEARS OPH SOLN 15 ML OU SCH ×5 (04:18→21:18)
[2016-08-24 06:53] LABS: MPV 6.8 fL (7.4-10.4)
[2016-08-24 07:02] LABS: BLOOD UREA NITROGEN 9 MG/DL (9-20); CALCIUM 7.9 MG/DL (8.4-10.2); CALCULATED OSMOLALITY 228 MOs/Kg (270-290); CHLORIDE 79 mEq/L (98-107); GLUCOSE 126 mg/dL (70-99)
[2016-08-24 07:07] LABS: SODIUM LEVEL 117 mEq/L (137-146)
[2016-08-24 08:04] LABS: SEG NEUTROPHIL 48 % (45-76)
[2016-08-24] MEDS ORDERED: GUAIFENESIN 1200 MG PO PRN (08:26)
[2016-08-24] MEDS ORDERED: GUAIFENESIN 600 MG LA TAB PO PRN (08:39)
[2016-08-24] MEDS ORDERED: SIMVASTATIN 20 MG TAB PO SCH (09:00)
[2016-08-24] MEDS ORDERED: MUPIROCIN 2% OINT 22 GM TUBE NAS SCH ×2 (09:00)
[2016-08-24] MEDS ORDERED: NYSTATIN POWDER 15 GM BOTTLE TOP SCH (09:00)
[2016-08-24] MEDS ORDERED: Magnesium Sulfate 2 gm/D5W 2 GM/50 ML RTU IV ONE (09:00)
--- NOTE | 2016-08-24 09:07 | GENMEDPROG ---
Chief Complaint: Severely ORTHOPNEIC with I laid patient down to raise him up. Notes Reviewed: Yes: Events from last night noted and discussed with Clinical Staff Current Medication List: Reviewed Currently: Denies: Cough, Wheezing, [place]ON, SOB DVT Prophylaxis: Yes - Physical Examination Vital Signs and I&O: Last Vital Signs Temp 98.7 F 08/24/16 07:49 Pulse 70 08/24/16 07:49 Resp 20 08/24/16 07:49 BP 180/94 H 08/24/16 07:49 Pulse Ox 95 08/24/16 07:49 Oxygen Pulse Oxygen Saturation 95 O2 Device Nasal Cannula Oxygen Flow Rate 4 Fraction of Inspired Oxygen ( FIO2) Intake & Output 08/21/16 08/22/16 08/23/16 08/24/16 23:59 23:59 23:59 23:59 Intake Total 2228 3856 1701 Output Total 1525 2600 1100 Balance 703 1256 601 Patient's weight 83.234 kg 83.518 kg 83.779 kg General: Alert, Oriented x3, No acute distress, Well appearing, Well nourished HEENT: Normal (Normocephalic, atraumatic;EOMI.Sclera white, Nares patent, without discharge or bleeding. No oropharyngeal lesions or erythema. Mucous membranes are dry.) Neck: Non-tender, Normal Trachea alignment, Normal inspection (No cervical lymphadenopathy. No supraclavicular lymphadenopathy.), No Masses palpable, Limited range of motion, Supple Lymphatics: Normal (No lymph node swelling or pain.) Respiratory: Accessory Muscle Use, Diminished Cardiovascular: Regular rate and rhythm (No bradycardia or tachycardia), Normal S1, No Gallops,Rubs/Murmurs, Normal S2, Good Pedal Pulses (DP pulses 2+ bilaterally) GI: Normal bowel sounds (normal active sounds), Soft (non-distended), Non tender , No hepatospenomegaly, No masses Extremities/Musculoskeletal: Cyanosis (TOES SL COOL). negative: Swelling, Edema , Clubbing Skin: Other (COOL FEET) Neurological: negative: Normal speech (DYSARTHRIC), Strength at 5/5 X4 ext, Cranial nerves 3-12 NL (GEN WEAKNESS) Psych/Mental Status: Agitated (SLIGHT) Lab/DI/Studies Reviewed: 08/24/16 05:55 08/24/16 05:55 Laboratory Results - last 24 hr 08/24/16 08/24/16 08/24/16 05:55 05:55 05:55 WBC 16.5 H RBC 4.29 L Hgb 14.0 Hct 40.7 L MCV 95 H MCH 32.7 H MCHC 34.5 RDW 14.7 H Plt Count 192 MPV 6.8 L Neut % (Auto) Cancelled Lymph % (Auto) Cancelled [place] % (Auto) Cancelled Eos % (Auto) Cancelled Baso % (Auto) Cancelled Absolute Neuts (auto) Cancelled Absolute Lymphs (auto) Cancelled Seg Neuts % (Manual) 48 Band Neutrophils % 0 Lymphocytes % (Manual) 47 H Monocytes % (Manual) 5 Absolute Neutrophils 7.92 Absolute Lymphocytes 7.76 H Atypical Lymphocytes Few Platelet Estimate Norm RBC Morphology Reviewed this admiss Sodium 117 L* Potassium 3.0 L D Chloride 79 L Carbon Dioxide 29 Anion Gap 12 BUN 9 Creatinine 0.50 L Estimated GFR (MDRD) > 60 Glucose 126 H Calculated Osmolality 228 L Calcium 7.9 L Magnesium 1.50 L - Assessment (1) Pneumonia Acute J18.9 - PNEUMONIA, UNSPECIFIED ORGANISM Qualifiers: Pneumonia type: due to unspecified organism Laterality: bilateral Lung location: lower lobe of lung Qualified Code(s): J18.9 - Pneumonia, unspecified organism Comment/Plan: PNEUMONIA on zosyn zithromax with probiotic. I feel that the pneumonia is contributing to his hyponatremia. (2) Hypokalemia Acute E87.6 - HYPOKALEMIA Comment/Plan: Supplementation is taken place. Continue to monitor. (3) Hyponatremia Acute E87.1 - HYPO-OSMOLALITY AND HYPONATREMIA Comment/Plan: Slightly better. Continue to monitor. Continue IV fluids however I am concerned that the IV fluids may be sending him in CHF and will start IV Lasix is he became extremely orthopnea quit LAID him flat. Recheck in a.m. (4) Leukocytosis Acute D72.829 - ELEVATED WHITE BLOOD CELL COUNT, UNSPECIFIED Qualifiers: Leukocytosis type: unspecified Qualified Code(s): D72.829 - Elevated white blood cell count, unspecified Comment/Plan: No clear source of infection. Etiology unclear. Unable to get any useful history from him. He does have a degenerative neurological condition. No clear seizure activity (5) CIDP (chronic inflammatory demyelinating polyneuropathy) Chronic G61.81 - CHRONIC INFLAMMATORY DEMYELINATING POLYNEURITIS Comment/ Plan: Suspicious that this may be the etiology of his decline. Continue to monitor. IVIG is ordered but patient declined. Will start Decadron low-dose. After reviewing the literature may use this as patient has been symptomatic. Additional Notes: Due to the presence of and / or the risk of deterioration, my attendance to this patient required critical care time, including assessment/reassessment, documentation, ordering and interpreting ancillary studies, discussion with staff and consultants,patient and family, and excludes time spent on separately billable procedures. This individual is critically ill and in danger of dying. Case Care Discussed with: Patient, Nursing Staff, Resource Management Education/Counseling Given To: Patient Education/Counseling Given Regarding: Diagnosis Total Time: Critical care time spent 38 min Critical Care: Yes Code: 291
[2016-08-24] MEDS: PENTOXIFYLLINE 400 MG TAB PO SCH ×3 (09:32→17:41)
[2016-08-24] MEDS: NS/KCl 20 mEq 1,000 ML IV SCH ×3 (09:33→21:17)
[2016-08-24] MEDS: POTASSIUM CHLORIDE 20 MEQ TAB PO SCH ×4 (09:33→14:38)
[2016-08-24] MEDS: AZITHROMYCIN 500 MG in D5W 250 ML IV SCH (09:35)
[2016-08-24] MEDS: AZATHIOPRINE 50 MG TAB PO SCH ×2 (09:35→21:15)
[2016-08-24] MEDS: TAMSULOSIN HCL 0.4 MG CAP PO SCH (09:35)
[2016-08-24] MEDS: SERTRALINE HCL 100 MG TAB PO SCH (09:38)
[2016-08-24] MEDS: ATENOLOL 25 MG TAB PO SCH (09:39)
[2016-08-24] MEDS: CETIRIZINE HCL 10 MG TAB PO SCH (09:39)
[2016-08-24] MEDS: NYSTATIN CREAM 15 GM TUBE TOP SCH ×2 (09:43→21:16)
[2016-08-24] MEDS: NYSTATIN POWDER 15 GM BOTTLE TOP SCH ×2 (09:43→17:42)
[2016-08-24] MEDS: PETROLATUM TOP SCH ×2 (09:44→21:16)
[2016-08-24] MEDS: HydrOXYzine PAMOATE 25 MG/CAP CAP PO SCH ×2 (11:21→17:41)
[2016-08-24] MEDS: PROBIOTIC BLEND TAB PO SCH ×2 (12:46→17:41)
[2016-08-24] MEDS: FERROUS SULFATE 324 MG TAB PO SCH ×2 (12:46→17:41)
[2016-08-24] MEDS: OXYCODONE HCL 5 MG TABLET PO PRN ×2 (14:41→21:17)
[2016-08-24] MEDS: MORPHINE 2 MG/ML INJECTION IV PRN ×2 (15:56→23:33)
[2016-08-24] MEDS ORDERED: Albuterol/Ipratropium Neb 3 ML NEB NEB PRN (16:24)
[2016-08-24] MEDS ORDERED: Albuterol/Ipratropium Neb 3 ML NEB NEB ONE (16:29)
[2016-08-24] MEDS: ENOXAPARIN 40 MG/0.4 ML PFS SQ SCH (17:41)
[2016-08-24] MEDS: ATORVASTATIN 40 MG TAB PO SCH (17:41)
[2016-08-24 19:07] LABS: BLOOD UREA NITROGEN 8 MG/DL (9-20); CALCIUM 7.9 MG/DL (8.4-10.2); CALCULATED OSMOLALITY 227 MOs/Kg (270-290); CHLORIDE 80 mEq/L (98-107); GLUCOSE 136 mg/dL (70-99)
[2016-08-24 19:21] LABS: SODIUM LEVEL 117 mEq/L (137-146)
[2016-08-24] MEDS: FUROSEMIDE 40 MG/4 ML VIAL IV SCH (21:21)
--- NOTE | 2016-08-24 21:52 | DIRPT ---
CLINICAL DATA: CHF. EXAM: PORTABLE CHEST 1 VIEW COMPARISON: Radiographs and CT 08/22/2016 FINDINGS: Very low lung volumes persist. Bibasilar atelectasis is again seen. Cardiomediastinal contours are unchanged. No pulmonary edema. No large pleural effusion. Gaseous distention of bowel loops in the upper abdomen is again seen. IMPRESSION: Hypoventilatory chest with bibasilar atelectasis, unchanged from prior. No findings to suggest CHF on low volume portable exam. Electronically Signed By: Sushma Oconnell M.D. On: 08/24/2016 21:49
[2016-08-24] MEDS: DEXAMETHASONE 4 MG/ML VIAL IV SCH (23:34)
[2016-08-25] MEDS: OXYCODONE HCL 5 MG TABLET PO PRN ×2 (02:58→12:16)
[2016-08-25] MEDS: ARTIFICIAL TEARS OPH SOLN 15 ML OU SCH ×6 (04:03→21:14)
[2016-08-25] MEDS: NS/KCl 20 mEq 1,000 ML IV SCH ×4 (04:34→17:29)
[2016-08-25 05:43] LABS: BLOOD UREA NITROGEN 6 MG/DL (9-20); CALCIUM 8.2 MG/DL (8.4-10.2); CALCULATED OSMOLALITY 231 MOs/Kg (270-290); CHLORIDE 80 mEq/L (98-107); GLUCOSE 124 mg/dL (70-99)
[2016-08-25] MEDS: HydrOXYzine PAMOATE 25 MG/CAP CAP PO SCH ×2 (06:00→17:19)
[2016-08-25] MEDS: FUROSEMIDE 40 MG/4 ML VIAL IV SCH ×2 (06:01→12:16)
[2016-08-25] MEDS: SIMETHICONE 80 MG TAB PO SCH ×3 (06:01→21:12)
[2016-08-25] MEDS: GABAPENTIN 400 MG CAP PO SCH ×3 (06:01→21:11)
[2016-08-25] MEDS: PIPERACILLIN AND TAZOBACTAM 4.5 GM in D5W 100 ML IV SCH ×3 (06:01→23:22)
[2016-08-25] MEDS: TRAMADOL HCL 50 MG TAB PO SCH ×3 (06:01→21:11)
[2016-08-25] MEDS: DEXAMETHASONE 4 MG/ML VIAL IV SCH ×4 (06:01→23:23)
[2016-08-25] MEDS: NYSTATIN POWDER 15 GM BOTTLE TOP SCH ×2 (06:02→17:19)
[2016-08-25 06:09] LABS: SODIUM LEVEL 120 mEq/L (137-146)
--- NOTE | 2016-08-25 07:52 | GENMEDPROG ---
Chief Complaint: SOB, WANTS higher dose of ULTRAM and he Agrees to take ivig Notes Reviewed: Yes: Events from last night noted and discussed with Clinical Staff Current Medication List: Reviewed Currently: Denies: Cough, Wheezing, NEWTON, SOB DVT Prophylaxis: Yes - Physical Examination Vital Signs and I&O: Last Vital Signs Temp 97.7 F 08/25/16 04:22 Pulse 69 08/25/16 06:43 Resp 20 08/25/16 04:22 BP 166/84 08/25/16 04:22 Pulse Ox 96 08/25/16 04:22 Oxygen Pulse Oxygen Saturation 96 O2 Device Nasal Cannula Oxygen Flow Rate 4 Fraction of Inspired Oxygen ( FIO2) Intake & Output 08/22/16 08/23/16 08/24/16 08/25/16 23:59 23:59 23:59 23:59 Intake Total 2228 3856 3264 Output Total 1525 2600 4100 1000 Balance 703 1256 -836 -1000 Patient's weight 83.234 kg 83.518 kg 83.779 kg 84.232 kg General: Alert, Oriented x3, No acute distress, Well appearing, Well nourished HEENT: Normal (Normocephalic, atraumatic;EOMI.Sclera white, Nares patent, without discharge or bleeding. No oropharyngeal lesions or erythema. Mucous membranes are dry.) Neck: Non-tender, Normal Trachea alignment, Normal inspection (No cervical lymphadenopathy. No supraclavicular lymphadenopathy.), No Masses palpable, Limited range of motion, Supple Lymphatics: Normal (No lymph node swelling or pain.) Respiratory: Accessory Muscle Use, Diminished Cardiovascular: Regular rate and rhythm (No bradycardia or tachycardia), Normal S1, No Gallops,Rubs/Murmurs, Normal S2, Good Pedal Pulses (DP pulses 2+ bilaterally) GI: Normal bowel sounds (normal active sounds), Soft (non-distended), Non tender , No hepatospenomegaly, No masses Extremities/Musculoskeletal: Cyanosis (TOES SL COOL). negative: Swelling, Edema , Clubbing Skin: Other (COOL FEET) Neurological: negative: Normal speech (DYSARTHRIC), Strength at 5/5 X4 ext, Cranial nerves 3-12 NL (GEN WEAKNESS) Psych/Mental Status: Agitated (SLIGHT) Lab/DI/Studies Reviewed: 08/24/16 05:55 08/25/16 04:25 Laboratory Results - last 24 hr 08/24/16 08/24/16 08/25/16 18:32 18:32 04:25 Sodium 117 L* 120 L* Potassium 3.8 D 4.3 Chloride 80 L 80 L Carbon Dioxide 28 30 Anion Gap 13 14 BUN 8 L 6 L Creatinine 0.40 L 0.50 L Estimated GFR (MDRD) > 60 > 60 Glucose 136 H 124 H Calculated Osmolality 227 L 231 L Calcium 7.9 L 8.2 L Magnesium 1.60 [id number]-[id number] Pept 474 - Assessment (1) Pneumonia Acute J18.9 - PNEUMONIA, UNSPECIFIED ORGANISM Qualifiers: Pneumonia type: due to unspecified organism Laterality: bilateral Lung location: lower lobe of lung Qualified Code(s): J18.9 - Pneumonia, unspecified organism Comment/Plan: PNEUMONIA on zosyn zithromax with probiotic. I feel that the pneumonia is contributing to his hyponatremia. (2) Hypomagnesemia Acute E83.42 - HYPOMAGNESEMIA Comment/Plan: Supplementation is ordered. (3) Leukocytosis Acute D72.829 - ELEVATED WHITE BLOOD CELL COUNT, UNSPECIFIED Qualifiers: Leukocytosis type: bandemia Qualified Code(s): D72.825 - Bandemia Comment/Plan: Etiology likely from pneumonia. (4) Hyponatremia Acute E87.1 - HYPO-OSMOLALITY AND HYPONATREMIA Comment/Plan: Slightly better. Continue to monitor. Continue IV fluids however I am concerned that the IV fluids may be sending him in CHF and will start IV Lasix is he became extremely orthopnea quit LAID him flat. Recheck in a.m. (5) CIDP (chronic inflammatory demyelinating polyneuropathy) Chronic G61.81 - CHRONIC INFLAMMATORY DEMYELINATING POLYNEURITIS Comment/ Plan: Suspicious that this may be the etiology of his decline. Continue to monitor. IVIG is ordered but patient declined. Will start Decadron low-dose. After reviewing the literature may use this as patient has been symptomatic. (6) Hypokalemia Acute E87.6 - HYPOKALEMIA Comment/Plan: Supplementation is taken place. Continue to monitor. Case Care Discussed with: Patient, Nursing Staff, Resource Management Education/Counseling Given To: Patient Education/Counseling Given Regarding: Diagnosis Total Time: 37 min Critical Care: No Code: 04226 (12+)
[2016-08-25] MEDS: ATENOLOL 25 MG TAB PO SCH (08:08)
[2016-08-25] MEDS: CETIRIZINE HCL 10 MG TAB PO SCH (08:08)
[2016-08-25] MEDS: SERTRALINE HCL 100 MG TAB PO SCH (08:08)
[2016-08-25] MEDS: AZATHIOPRINE 50 MG TAB PO SCH ×2 (08:08→21:12)
[2016-08-25] MEDS: PENTOXIFYLLINE 400 MG TAB PO SCH ×3 (08:08→17:20)
[2016-08-25] MEDS: TAMSULOSIN HCL 0.4 MG CAP PO SCH (08:08)
[2016-08-25] MEDS: AZITHROMYCIN 500 MG in D5W 250 ML IV SCH (08:12)
[2016-08-25] MEDS: NYSTATIN CREAM 15 GM TUBE TOP SCH ×2 (10:37→21:14)
[2016-08-25] MEDS: PETROLATUM TOP SCH ×2 (10:37→21:30)
[2016-08-25] MEDS: FERROUS SULFATE 324 MG TAB PO SCH ×2 (12:16→17:20)
[2016-08-25] MEDS: PROBIOTIC BLEND TAB PO SCH ×2 (12:16→17:20)
--- NOTE | 2016-08-25 13:05 | PCM.NEUPN ---
- Physical Exam Vital Signs: Initial Vitals Temperature 98.4 F 08/22/16 04:09 Pulse Rate 61 08/22/16 04:09 Respiratory Rate 22 08/22/16 04:09 Blood Pressure 182/77 H 08/22/16 04:09 Pulse Oxygen Saturation 92 08/22/16 04:09 Constitutional: Alert - Mental Status Orientation: Person, Place Speech: Dysarthria Coginitive: Normal Motor Function: Abnormal (no change from previous with severe weakness in distal UE bilaterally and left LE) Affect: Flat Thought: Coherent Perception: Normal - Reflex Reflexes: Absent 0: Right Bicep, Left Bicep, Left Tricep, Right Tricep, Left Brachioradialis, Right Brachioradialis, Left Patellar, Right Patellar, Left Achilles, Right Achilles - Coordination Finger to Nose Test: Activity Impossible - Lab Results Laboratory Tests 08/22/16 08/22/16 08/22/16 04:00 08:39 08:39 WBC 19.3 H MCV 96 H Lymphocytes % (Manual) 47 H ESR 8 Sodium 113 L* 08/22/16 08/24/16 08/24/16 13:45 05:55 05:55 WBC 16.5 H MCV 95 H Lymphocytes % (Manual) 47 H ESR Sodium 117 L* 117 L* 08/24/16 08/25/16 18:32 04:25 WBC MCV Lymphocytes % (Manual) ESR Sodium 117 L* 120 L* - Assessment/Plan (1) CIDP (chronic inflammatory demyelinating polyneuropathy) G61.81 - CHRONIC INFLAMMATORY DEMYELINATING POLYNEURITIS Chronic Present on Admission: Yes Comment: Pt says he feels better. IVIG was offered but he refused. He is now on decadron which can be helpful but may be limited due to his age, electrolyte imbalances and infection. He is also on Imuran for the CIDP and has been for over 10 years. We discussed prognosis and talked about whether he would want to be intubated and he wants to think about that. Continue his current treatments for now. Case Care Discussed with: Patient, Other
[2016-08-25] MEDS ORDERED: IMMUNE GLOBULIN GAMMA IV ONE (16:00)
[2016-08-25] MEDS ORDERED: IMMUNE GLOBULIN GAMMA IV SCH (16:00)
[2016-08-25] MEDS ORDERED: Magnesium Sulfate 2 gm/D5W 2 GM/50 ML RTU IV ONE (17:00)
[2016-08-25] MEDS: ENOXAPARIN 40 MG/0.4 ML PFS SQ SCH (17:20)
[2016-08-25] MEDS: ATORVASTATIN 40 MG TAB PO SCH (17:36)
[2016-08-25] MEDS ORDERED: Magnesium Sulfate 1 gm/D5W 1 GM/100 ML RTU IV ONE (21:00)
[2016-08-26] MEDS: OXYCODONE HCL 5 MG TABLET PO PRN ×2 (00:20→10:49)
[2016-08-26] MEDS: NS/KCl 20 mEq 1,000 ML IV SCH ×7 (00:21→23:01)
[2016-08-26 05:08] LABS: AUTOMATED LYMPH 51.4 % (17-44); AUTOMATED MONOCYTE 3.7 % (3-10); AUTOMATED NEUTROPHIL 44.9 % (45-76); MPV 6.8 fL (7.4-10.4)
[2016-08-26 05:20] LABS: BLOOD UREA NITROGEN 10 MG/DL (9-20); CALCIUM 8.1 MG/DL (8.4-10.2); CALCULATED OSMOLALITY 235 MOs/Kg (270-290); CHLORIDE 80 mEq/L (98-107); GLUCOSE 129 mg/dL (70-99)
[2016-08-26 05:30] LABS: SODIUM LEVEL 121 mEq/L (137-146)
[2016-08-26] MEDS: ARTIFICIAL TEARS OPH SOLN 15 ML OU SCH ×6 (05:52→22:58)
[2016-08-26] MEDS: PIPERACILLIN AND TAZOBACTAM 4.5 GM in D5W 100 ML IV SCH ×3 (05:53→22:56)
[2016-08-26] MEDS: GABAPENTIN 400 MG CAP PO SCH ×3 (05:54→20:58)
[2016-08-26] MEDS: TRAMADOL HCL 50 MG TAB PO SCH ×3 (05:55→20:58)
[2016-08-26] MEDS: HydrOXYzine PAMOATE 25 MG/CAP CAP PO SCH ×2 (05:55→15:13)
[2016-08-26] MEDS: SIMETHICONE 80 MG TAB PO SCH ×3 (05:55→20:58)
[2016-08-26] MEDS: DEXAMETHASONE 4 MG/ML VIAL IV SCH ×4 (06:00→22:57)
[2016-08-26] MEDS: NYSTATIN POWDER 15 GM BOTTLE TOP SCH ×2 (06:05→16:10)
--- NOTE | 2016-08-26 07:40 | DIRPT ---
CLINICAL DATA: Followup pneumonia EXAM: PORTABLE CHEST 1 VIEW COMPARISON: 08/24/2016 FINDINGS: The overall inspiratory effort is poor. Bibasilar atelectasis is again identified. Scattered large and small bowel gas are noted. Cardiac shadow is stable. No new focal abnormality is seen. IMPRESSION: Poor inspiratory effort. Stable bibasilar atelectasis. Electronically Signed By: Elliott Valdez M.D. On: 08/26/2016 07:37
--- NOTE | 2016-08-26 08:07 | GENMEDPROG ---
Chief Complaint: sob and feels terrible. Getting IVIG 2nd dose today. Still very weak. Nonambulatory in longterm using wheelchair to get around. Notes Reviewed: Yes: Events from last night noted and discussed with Clinical Staff Current Medication List: Reviewed Currently: Denies: Cough, Wheezing, [place]WTON, SOB DVT Prophylaxis: Yes - Physical Examination Vital Signs and I&O: Last Vital Signs Temp 97.6 F 08/26/16 07:44 Pulse 62 08/26/16 07:44 Resp 20 08/26/16 07:44 BP 184/80 H 08/26/16 07:44 Pulse Ox 94 08/26/16 07:44 Oxygen Pulse Oxygen Saturation 94 O2 Device Nasal Cannula Oxygen Flow Rate 3.5 Fraction of Inspired Oxygen ( FIO2) Intake & Output 08/23/16 08/24/16 08/25/16 08/26/16 23:59 23:59 23:59 23:59 Intake Total 3856 3264 2630 1907 Output Total 2600 4100 3150 1100 Balance 1896 -881 -865 807 Patient's weight 83.518 kg 83.779 kg 84.232 kg 83.733 kg General: Alert, Oriented x3, No acute distress, Well appearing, Well nourished HEENT: Normal (Normocephalic, atraumatic;EOMI.Sclera white, Nares patent, without discharge or bleeding. No oropharyngeal lesions or erythema. Mucous membranes are dry.) Neck: Non-tender, Normal Trachea alignment, Normal inspection (No cervical lymphadenopathy. No supraclavicular lymphadenopathy.), No Masses palpable, Limited range of motion, Supple Lymphatics: Normal (No lymph node swelling or pain.) Respiratory: Accessory Muscle Use, Diminished. negative: Rhonchi, Wheezes Cardiovascular: Regular rate and rhythm (No bradycardia or tachycardia), Normal S1, No Gallops,Rubs/Murmurs, Normal S2, Good Pedal Pulses (DP pulses 2+ bilaterally) GI: Normal bowel sounds (normal active sounds), Soft (non-distended), Non tender , No hepatospenomegaly, No masses Extremities/Musculoskeletal: Cyanosis (TOES SL COOL). negative: Swelling, Edema , Clubbing Skin: Other (COOL FEET) Neurological: negative: Normal speech (DYSARTHRIC), Strength at 5/5 X4 ext, Cranial nerves 3-12 NL (GEN WEAKNESS) Psych/Mental Status: Agitated (SLIGHT) Lab/DI/Studies Reviewed: 08/26/16 04:15 08/26/16 04:15 Laboratory Results - last 24 hr 08/26/16 08/26/16 04:15 04:15 WBC 12.8 H RBC 4.17 L Hgb 13.8 L Hct 40.2 L MCV 97 H MCH 33.2 H MCHC 34.4 RDW 14.4 Plt Count 170 MPV 6.8 L Neut % (Auto) 44.9 L Lymph % (Auto) 51.4 H [place] % (Auto) 3.7 Eos % (Auto) 0.0 Baso % (Auto) 0.0 Absolute Neuts (auto) 5.63 Absolute Lymphs (auto) 6.53 H Sodium 121 L* Potassium 3.9 Chloride 80 L Carbon Dioxide 33 Anion Gap 12 BUN 10 Creatinine 0.70 Estimated GFR (MDRD) > 60 Glucose 129 H Calculated Osmolality 235 L Calcium 8.1 L Magnesium 2.00 - Assessment (1) Pneumonia Acute J18.9 - PNEUMONIA, UNSPECIFIED ORGANISM Qualifiers: Pneumonia type: due to unspecified organism Laterality: bilateral Lung location: lower lobe of lung Qualified Code(s): J18.9 - Pneumonia, unspecified organism Comment/Plan: PNEUMONIA on zosyn zithromax with probiotic. I feel that the pneumonia is contributing to his hyponatremia. (2) Leukocytosis Acute D72.829 - ELEVATED WHITE BLOOD CELL COUNT, UNSPECIFIED Qualifiers: Leukocytosis type: bandemia Qualified Code(s): D72.825 - Bandemia Comment/Plan: Etiology likely from pneumonia. (3) Hyponatremia Acute E87.1 - HYPO-OSMOLALITY AND HYPONATREMIA Comment/Plan: Slightly better. Continue to monitor. Continue IV fluids however I am concerned that the IV fluids may be sending him in CHF and will start IV Lasix is he became extremely orthopnea quit LAID him flat. Hyponatremia continues to plague him. Still feels very very weak. (4) CIDP (chronic inflammatory demyelinating polyneuropathy) Chronic G61.81 - CHRONIC INFLAMMATORY DEMYELINATING POLYNEURITIS Comment/ Plan: Likely this and the pneumonia are related to the etiology of his decline. Continue to monitor. IVIG is ordered but patient declined. Will start steroids low-dose. After reviewing the literature may use this as patient has been symptomatic. If improvement does not occur may be a candidate for hospice. (5) Hypokalemia Acute E87.6 - HYPOKALEMIA Comment/Plan: Supplementation is taken place. Continue to monitor. (6) Hypomagnesemia Resolved E83.42 - HYPOMAGNESEMIA Comment/Plan: Has been supplemented. Case Care Discussed with: Patient, Nursing Staff, Resource Management Education/Counseling Given To: Patient Education/Counseling Given Regarding: Diagnosis Total Time: 38 min Critical Care: No Code: 48408 (12+)
[2016-08-26] MEDS: AZITHROMYCIN 500 MG in D5W 250 ML IV SCH (08:50)
[2016-08-26] MEDS: TAMSULOSIN HCL 0.4 MG CAP PO SCH (08:51)
[2016-08-26] MEDS: ATENOLOL 25 MG TAB PO SCH (08:51)
[2016-08-26] MEDS: CETIRIZINE HCL 10 MG TAB PO SCH (08:51)
[2016-08-26] MEDS: AZATHIOPRINE 50 MG TAB PO SCH ×2 (08:51→20:58)
[2016-08-26] MEDS: SERTRALINE HCL 100 MG TAB PO SCH (08:52)
[2016-08-26] MEDS: PENTOXIFYLLINE 400 MG TAB PO SCH ×3 (08:52→18:13)
[2016-08-26] MEDS: NYSTATIN CREAM 15 GM TUBE TOP SCH ×2 (08:52→15:13)
[2016-08-26] MEDS: PETROLATUM TOP SCH ×2 (08:55→20:57)
[2016-08-26] MEDS: FUROSEMIDE 40 MG/4 ML VIAL IV SCH (09:06)
[2016-08-26 09:09] LABS: BEb 8.3 (+/- 2); TCO2 38.8 MMOL/L (23-27)
[2016-08-26 09:12] LABS: ABG Draw Site rr; ALLEN'S TEST PASS
[2016-08-26] MEDS: PROBIOTIC BLEND TAB PO SCH ×2 (11:38→18:13)
[2016-08-26] MEDS: FERROUS SULFATE 324 MG TAB PO SCH ×2 (11:38→18:13)
[2016-08-26] MEDS ORDERED: IMMUNE GLOBULIN GAMMA IV SCH (12:00)
[2016-08-26] MEDS: ENOXAPARIN 40 MG/0.4 ML PFS SQ SCH (18:12)
[2016-08-26] MEDS: ATORVASTATIN 40 MG TAB PO SCH (18:13)
[2016-08-26] MEDS: MORPHINE 2 MG/ML INJECTION IV PRN ×2 (18:30→20:57)
[2016-08-26] MEDS: TEMAZEPAM 15 MG CAP PO PRN (20:59)
[2016-08-27] MEDS: MORPHINE 2 MG/ML INJECTION IV PRN ×3 (02:38→21:42)
[2016-08-27] MEDS: ARTIFICIAL TEARS OPH SOLN 15 ML OU SCH ×6 (02:40→21:39)
[2016-08-27 03:54] LABS: MPV 6.6 fL (7.4-10.4)
[2016-08-27 04:09] LABS: BLOOD UREA NITROGEN 12 MG/DL (9-20); CALCIUM 8.3 MG/DL (8.4-10.2); CALCULATED OSMOLALITY 239 MOs/Kg (270-290); CHLORIDE 81 mEq/L (98-107); GLUCOSE 122 mg/dL (70-99)
[2016-08-27 04:15] LABS: SODIUM LEVEL 123 mEq/L (137-146)
[2016-08-27 04:48] LABS: SEG NEUTROPHIL 66 % (45-76)
[2016-08-27] MEDS: PIPERACILLIN AND TAZOBACTAM 4.5 GM in D5W 100 ML IV SCH ×3 (06:52→21:41)
[2016-08-27] MEDS: NS/KCl 20 mEq 1,000 ML IV SCH ×4 (06:52→21:38)
[2016-08-27] MEDS: DEXAMETHASONE 4 MG/ML VIAL IV SCH (06:53)
[2016-08-27] MEDS: GABAPENTIN 400 MG CAP PO SCH ×3 (06:57→21:41)
[2016-08-27] MEDS: TRAMADOL HCL 50 MG TAB PO SCH ×3 (06:57→21:40)
[2016-08-27] MEDS: HydrOXYzine PAMOATE 25 MG/CAP CAP PO SCH ×2 (06:58→15:56)
[2016-08-27] MEDS: SIMETHICONE 80 MG TAB PO SCH ×3 (06:58→21:41)
[2016-08-27] MEDS: NYSTATIN POWDER 15 GM BOTTLE TOP SCH ×2 (07:02→15:53)
--- NOTE | 2016-08-27 08:09 | GENMEDPROG ---
Chief Complaint: C/O LS PAIN AND BLE PAIN SOB SAME Notes Reviewed: Yes: Events from last night noted and discussed with Clinical Staff Current Medication List: Reviewed Currently: Denies: Cough, Wheezing, NEWTON, SOB DVT Prophylaxis: Yes - Physical Examination Vital Signs and I&O: Last Vital Signs Temp 97.6 F 08/27/16 07:46 Pulse 67 08/27/16 07:46 Resp 18 08/27/16 07:46 BP 156/96 08/27/16 07:46 Pulse Ox 90 L 08/27/16 07:46 Oxygen Pulse Oxygen Saturation 90 O2 Device Nasal Cannula Oxygen Flow Rate 1 Fraction of Inspired Oxygen ( FIO2) Intake & Output 08/24/16 08/25/16 08/26/16 08/27/16 23:59 23:59 23:59 23:59 Intake Total 3264 2630 5651 2157 Output Total 4100 3150 4100 1400 Balance -836 -520 1551 757 Patient's weight 83.779 kg 84.232 kg 83.733 kg 83.546 kg General: Alert, Oriented x3, No acute distress, Well appearing, Well nourished HEENT: Normal (Normocephalic, atraumatic;EOMI.Sclera white, Nares patent, without discharge or bleeding. No oropharyngeal lesions or erythema. Mucous membranes are dry.) Neck: Non-tender, Normal Trachea alignment, Normal inspection (No cervical lymphadenopathy. No supraclavicular lymphadenopathy.), No Masses palpable, Limited range of motion, Supple Lymphatics: Normal (No lymph node swelling or pain.) Respiratory: Accessory Muscle Use, Diminished. negative: Rhonchi, Wheezes Cardiovascular: Regular rate and rhythm (No bradycardia or tachycardia), Normal S1, No Gallops,Rubs/Murmurs, Normal S2, Good Pedal Pulses (DP pulses 2+ bilaterally) GI: Normal bowel sounds (normal active sounds), Soft (non-distended), Non tender , No hepatospenomegaly, No masses Extremities/Musculoskeletal: Cyanosis (TOES SL COOL). negative: Swelling, Edema , Clubbing Skin: Other (COOL FEET) Neurological: negative: Normal speech (DYSARTHRIC), Strength at 5/5 X4 ext, Cranial nerves 3-12 NL (GEN WEAKNESS) Psych/Mental Status: Agitated (SLIGHT) Lab/DI/Studies Reviewed: 08/27/16 03:05 08/27/16 03:05 Laboratory Results - last 24 hr 08/26/16 08/27/16 08/27/16 09:05 03:05 03:05 WBC 9.4 RBC 3.93 L Hgb 13.1 L Hct 38.0 L MCV 97 H MCH 33.3 H MCHC 34.4 RDW 14.3 Plt Count 164 MPV 6.6 L Neut % (Auto) Cancelled Lymph % (Auto) Cancelled Cassia % (Auto) Cancelled Eos % (Auto) Cancelled Baso % (Auto) Cancelled Absolute Neuts (auto) Cancelled Absolute Lymphs (auto) Cancelled Seg Neuts % (Manual) 66 Band Neutrophils % 0 Lymphocytes % (Manual) 33 Monocytes % (Manual) 1 Absolute Neutrophils 6.20 Absolute Lymphocytes 3.10 Atypical Lymphocytes Mod amt Platelet Estimate Norm RBC Morphology Reviewed this admiss Puncture Site rr pH 7.340 L pCO2 68.0 H* pO2 74.0 L HCO3 36.7 H Total CO2 38.8 H Base Excess 8.3 H Specimen Drawn By Trete Sodium 123 L* Potassium 3.9 Chloride 81 L Carbon Dioxide 37 H Anion Gap 9 BUN 12 Creatinine 0.70 Estimated GFR (MDRD) > 60 Glucose 122 H Calculated Osmolality 239 L Calcium 8.3 L - Assessment (1) Pneumonia Acute J18.9 - PNEUMONIA, UNSPECIFIED ORGANISM Qualifiers: Pneumonia type: due to unspecified organism Laterality: bilateral Lung location: lower lobe of lung Qualified Code(s): J18.9 - Pneumonia, unspecified organism Comment/Plan: PNEUMONIA on zosyn zithromax with probiotic. I feel that the pneumonia is contributing to his hyponatremia. (2) Hyponatremia Acute E87.1 - HYPO-OSMOLALITY AND HYPONATREMIA Comment/Plan: Slightly better. Continue to monitor. Continue IV fluids however I am concerned that the IV fluids may be sending him in CHF and will start IV Lasix is he became extremely orthopnea quit LAID him flat. Hyponatremia continues to plague him. Still feels very very weak. 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 Continue to monitor. IVIG is ordered but patient declined. Will start steroids low-dose. After reviewing the literature may use this as patient has been symptomatic. If improvement does not occur may be a candidate for hospice. (4) Hypokalemia Acute E87.6 - HYPOKALEMIA Comment/Plan: Supplementation is taken place. Continue to monitor. (5) Hypomagnesemia Resolved E83.42 - HYPOMAGNESEMIA Comment/Plan: Has been supplemented. (6) Leukocytosis Resolved D72.829 - ELEVATED WHITE BLOOD CELL COUNT, UNSPECIFIED Qualifiers: Leukocytosis type: bandemia Qualified Code(s): D72.825 - Bandemia Comment/Plan: Etiology likely from pneumonia. Much improved 08/27/2016. Additional Notes: KERRY COY NUMBER [phone] Case Care Discussed with: Patient, Nursing Staff, Resource Management Education/Counseling Given To: Patient Education/Counseling Given Regarding: Diagnosis Total Time: 37 MIN Critical Care: No Code: 28531 (12+)
[2016-08-27] MEDS: PENTOXIFYLLINE 400 MG TAB PO SCH ×3 (09:06→15:57)
[2016-08-27] MEDS: TAMSULOSIN HCL 0.4 MG CAP PO SCH (09:07)
[2016-08-27] MEDS: AZATHIOPRINE 50 MG TAB PO SCH ×2 (09:07→21:41)
[2016-08-27] MEDS: ATENOLOL 25 MG TAB PO SCH (09:08)
[2016-08-27] MEDS: NYSTATIN CREAM 15 GM TUBE TOP SCH ×2 (09:08→21:42)
[2016-08-27] MEDS: AZITHROMYCIN 500 MG in D5W 250 ML IV SCH (09:08)
[2016-08-27] MEDS: FUROSEMIDE 40 MG/4 ML VIAL IV SCH (09:08)
[2016-08-27] MEDS: PROBIOTIC BLEND TAB PO SCH ×2 (09:09→15:59)
[2016-08-27] MEDS: CETIRIZINE HCL 10 MG TAB PO SCH (09:09)
[2016-08-27] MEDS: FERROUS SULFATE 324 MG TAB PO SCH ×2 (09:09→15:58)
[2016-08-27] MEDS: SERTRALINE HCL 100 MG TAB PO SCH (09:09)
[2016-08-27] MEDS: PREDNISONE 20 MG TAB PO SCH (11:56)
[2016-08-27] MEDS: PETROLATUM TOP SCH ×2 (11:59→21:43)
[2016-08-27] MEDS: OXYCODONE HCL 5 MG TABLET PO PRN ×2 (15:51→21:41)
[2016-08-27] MEDS: ATORVASTATIN 40 MG TAB PO SCH (16:00)
[2016-08-27] MEDS: ENOXAPARIN 40 MG/0.4 ML PFS SQ SCH (16:01)
[2016-08-27] MEDS: TEMAZEPAM 15 MG CAP PO PRN (21:41)
[2016-08-28] MEDS: NS/KCl 20 mEq 1,000 ML IV SCH ×7 (02:00→17:23)
[2016-08-28 03:27] LABS: AUTOMATED BASOPHIL 0.1 % (0-2); AUTOMATED EOSINOPHIL 0.2 % (0-5); AUTOMATED LYMPH 44.3 % (17-44); AUTOMATED MONOCYTE 5.4 % (3-10); MPV 6.5 fL (7.4-10.4)
[2016-08-28 03:30] LABS: BLOOD UREA NITROGEN 13 MG/DL (9-20); CALCULATED OSMOLALITY 244 MOs/Kg (270-290); CHLORIDE 86 mEq/L (98-107); GLUCOSE 114 mg/dL (70-99); SODIUM LEVEL 126 mEq/L (137-146)
[2016-08-28] MEDS: ARTIFICIAL TEARS OPH SOLN 15 ML OU SCH ×6 (04:42→22:04)
[2016-08-28] MEDS: PIPERACILLIN AND TAZOBACTAM 4.5 GM in D5W 100 ML IV SCH ×3 (05:40→22:15)
[2016-08-28] MEDS: GABAPENTIN 400 MG CAP PO SCH ×3 (05:41→22:02)
[2016-08-28] MEDS: SIMETHICONE 80 MG TAB PO SCH ×3 (05:41→22:03)
[2016-08-28] MEDS: TRAMADOL HCL 50 MG TAB PO SCH ×3 (05:41→22:02)
[2016-08-28] MEDS: NYSTATIN POWDER 15 GM BOTTLE TOP SCH ×2 (05:42→17:19)
[2016-08-28] MEDS: PENTOXIFYLLINE 400 MG TAB PO SCH ×3 (05:42→17:21)
[2016-08-28] MEDS: HydrOXYzine PAMOATE 25 MG/CAP CAP PO SCH ×2 (05:43→17:21)
[2016-08-28] MEDS: ATENOLOL 25 MG TAB PO SCH (06:02)
[2016-08-28] MEDS: PREDNISONE 20 MG TAB PO SCH (08:13)
[2016-08-28] MEDS: OXYCODONE HCL 5 MG TABLET PO PRN ×3 (08:13→22:23)
[2016-08-28] MEDS: AZATHIOPRINE 50 MG TAB PO SCH ×2 (08:19→22:02)
[2016-08-28] MEDS: PETROLATUM TOP SCH ×2 (08:19→22:01)
[2016-08-28] MEDS: AZITHROMYCIN 500 MG in D5W 250 ML IV SCH (08:21)
[2016-08-28] MEDS: FUROSEMIDE 40 MG/4 ML VIAL IV SCH (08:21)
[2016-08-28] MEDS: SERTRALINE HCL 100 MG TAB PO SCH (08:21)
[2016-08-28] MEDS: NYSTATIN CREAM 15 GM TUBE TOP SCH ×2 (08:21→22:03)
[2016-08-28] MEDS: CETIRIZINE HCL 10 MG TAB PO SCH (08:23)
[2016-08-28] MEDS: TAMSULOSIN HCL 0.4 MG CAP PO SCH (13:32)
[2016-08-28] MEDS: FERROUS SULFATE 324 MG TAB PO SCH ×2 (13:37→17:22)
[2016-08-28] MEDS: PROBIOTIC BLEND TAB PO SCH ×2 (13:38→17:22)
--- NOTE | 2016-08-28 14:23 | GENMEDPROG ---
Chief Complaint: sob still but he is not tachypneic and is O2 sat is better. Notes Reviewed: Yes: Events from last night noted and discussed with Clinical Staff Current Medication List: Reviewed Currently: Denies: Cough, Wheezing, NEWTON, SOB DVT Prophylaxis: Yes - Physical Examination Vital Signs and I&O: Last Vital Signs Temp 98.0 F 08/28/16 12:17 Pulse 60 08/28/16 12:17 Resp 22 08/28/16 12:17 BP 140/72 08/28/16 12:17 Pulse Ox 99 08/28/16 12:17 Oxygen Pulse Oxygen Saturation 99 O2 Device Nasal Cannula Oxygen Flow Rate 2 Fraction of Inspired Oxygen ( FIO2) Intake & Output 08/25/16 08/26/16 08/27/16 08/28/16 23:59 23:59 23:59 23:59 Intake Total 2630 5651 7003 460 Output Total 3150 4100 4850 2850 Balance -520 1551 2153 -2390 Patient's weight 84.232 kg 83.733 kg 83.546 kg 84.187 kg General: Alert, Oriented x3, No acute distress, Well appearing, Well nourished HEENT: Normal (Normocephalic, atraumatic;EOMI.Sclera white, Nares patent, without discharge or bleeding. No oropharyngeal lesions or erythema. Mucous membranes are dry.) Neck: Non-tender, Normal Trachea alignment, Normal inspection (No cervical lymphadenopathy. No supraclavicular lymphadenopathy.), No Masses palpable, Limited range of motion, Supple Lymphatics: Normal (No lymph node swelling or pain.) Respiratory: Accessory Muscle Use, Diminished. negative: Rhonchi, Wheezes Cardiovascular: Regular rate and rhythm (No bradycardia or tachycardia), Normal S1, No Gallops,Rubs/Murmurs, Normal S2, Good Pedal Pulses (DP pulses 2+ bilaterally) GI: Normal bowel sounds (normal active sounds), Soft (non-distended), Non tender , No hepatospenomegaly, No masses Extremities/Musculoskeletal: Cyanosis (TOES SL COOL). negative: Swelling, Edema , Clubbing Skin: Other (COOL FEET) Neurological: negative: Normal speech (DYSARTHRIC), Strength at 5/5 X4 ext, Cranial nerves 3-12 NL (GEN WEAKNESS) Psych/Mental Status: Agitated (SLIGHT) Lab/DI/Studies Reviewed: 08/28/16 02:10 08/28/16 02:10 Laboratory Results - last 24 hr 08/28/16 08/28/16 02:10 02:10 WBC 8.4 RBC 3.67 L Hgb 12.0 L Hct 35.8 L MCV 98 H MCH 32.7 H MCHC 33.5 RDW 14.5 Plt Count 154 MPV 6.5 L Neut % (Auto) 50.0 Lymph % (Auto) 44.3 H [place] % (Auto) 5.4 Eos % (Auto) 0.2 Baso % (Auto) 0.1 Absolute Neuts (auto) 4.20 Absolute Lymphs (auto) 3.70 Sodium 126 L Potassium 4.0 Chloride 86 L Carbon Dioxide 38 H Anion Gap 6 L BUN 13 Creatinine 0.60 L Estimated GFR (MDRD) > 60 Glucose 114 H Calculated Osmolality 244 L Calcium 8.0 L - Assessment (1) Pneumonia Acute J18.9 - PNEUMONIA, UNSPECIFIED ORGANISM Qualifiers: Pneumonia type: due to unspecified organism Laterality: bilateral Lung location: lower lobe of lung Qualified Code(s): J18.9 - Pneumonia, unspecified organism Comment/Plan: PNEUMONIA on zosyn zithromax with probiotic. I feel that the pneumonia is contributing to his hyponatremia. (2) Hyponatremia Acute E87.1 - HYPO-OSMOLALITY AND HYPONATREMIA Comment/Plan: Improving sodium. Still feels very very weak. 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 Continue to monitor. IVIG is ordered but patient declined. Will start steroids low-dose. After reviewing the literature may use this as patient has been symptomatic. If improvement does not occur may be a candidate for hospice. (4) Leukocytosis Resolved D72.829 - ELEVATED WHITE BLOOD CELL COUNT, UNSPECIFIED Qualifiers: Leukocytosis type: bandemia Qualified Code(s): D72.825 - Bandemia Comment/Plan: Etiology likely from pneumonia. Much improved 08/27/2016. (5) Hypokalemia Resolved E87.6 - HYPOKALEMIA Comment/Plan: Supplementation is taken place. Continue to monitor. (6) Hypomagnesemia Resolved E83.42 - HYPOMAGNESEMIA Comment/Plan: Has been supplemented. Case Care Discussed with: Patient, Nursing Staff, Other (guard) Education/Counseling Given To: Patient Education/Counseling Given Regarding: Diagnosis Total Time: 39 min Critical Care: No Code: 80690 (12+)
[2016-08-28] MEDS: MORPHINE 2 MG/ML INJECTION IV PRN ×2 (16:05→17:36)
[2016-08-28] MEDS: ATORVASTATIN 40 MG TAB PO SCH (17:22)
[2016-08-28] MEDS: ENOXAPARIN 40 MG/0.4 ML PFS SQ SCH (17:22)
[2016-08-29] MEDS: NS/KCl 20 mEq 1,000 ML IV SCH ×3 (00:23→20:03)
[2016-08-29] MEDS: OXYCODONE HCL 5 MG TABLET PO PRN ×3 (02:58→16:52)
[2016-08-29] MEDS: ARTIFICIAL TEARS OPH SOLN 15 ML OU SCH ×6 (02:59→20:20)
[2016-08-29] MEDS: MORPHINE 2 MG/ML INJECTION IV PRN ×2 (03:11→22:08)
[2016-08-29 04:29] LABS: BLOOD UREA NITROGEN 15 MG/DL (9-20); CALCIUM 8.5 MG/DL (8.4-10.2); CALCULATED OSMOLALITY 251 MOs/Kg (270-290); CHLORIDE 88 mEq/L (98-107); GLUCOSE 79 mg/dL (70-99); SODIUM LEVEL 130 mEq/L (137-146)
[2016-08-29] MEDS: PIPERACILLIN AND TAZOBACTAM 4.5 GM in D5W 100 ML IV SCH (05:38)
[2016-08-29] MEDS: TRAMADOL HCL 50 MG TAB PO SCH ×3 (05:40→20:20)
[2016-08-29] MEDS: GABAPENTIN 400 MG CAP PO SCH ×3 (05:41→20:20)
[2016-08-29] MEDS: HydrOXYzine PAMOATE 25 MG/CAP CAP PO SCH ×2 (05:42→16:54)
[2016-08-29] MEDS: SIMETHICONE 80 MG TAB PO SCH ×3 (05:42→20:19)
[2016-08-29] MEDS: FUROSEMIDE 40 MG/4 ML VIAL IV SCH (09:42)
[2016-08-29] MEDS: NYSTATIN CREAM 15 GM TUBE TOP SCH ×2 (09:42→20:19)
[2016-08-29] MEDS: NYSTATIN POWDER 15 GM BOTTLE TOP SCH ×2 (09:42→16:55)
[2016-08-29] MEDS: TAMSULOSIN HCL 0.4 MG CAP PO SCH (09:43)
[2016-08-29] MEDS: CETIRIZINE HCL 10 MG TAB PO SCH (09:43)
[2016-08-29] MEDS: ATENOLOL 25 MG TAB PO SCH (09:43)
[2016-08-29] MEDS: AZATHIOPRINE 50 MG TAB PO SCH ×2 (09:43→20:19)
[2016-08-29] MEDS: PENTOXIFYLLINE 400 MG TAB PO SCH ×3 (09:43→18:59)
[2016-08-29] MEDS: PREDNISONE 20 MG TAB PO SCH (09:43)
[2016-08-29] MEDS: SERTRALINE HCL 100 MG TAB PO SCH (09:43)
[2016-08-29] MEDS: AZITHROMYCIN 500 MG in D5W 250 ML IV SCH (09:44)
[2016-08-29] MEDS: PETROLATUM TOP SCH ×2 (09:45→20:18)
--- NOTE | 2016-08-29 11:17 | GENMEDPROG ---
Chief Complaint: Does not want to go back to his previous environment where he states that he is unable to perform the activities of daily living. He states that he is unable to care for himself. For that reason I get occupational physical therapies to assist him and I made a call to [facility] in [place] and spoke with Dr. Conley who indicated that he would be happy to take him tomorrow if a bed is available. He requested that he not need any IV antibiotics. I indicated he would need IVIG every 3 weeks. Notes Reviewed: Yes: Events from last night noted and discussed with Clinical Staff Current Medication List: Reviewed Currently: Denies: Cough, Wheezing, NEWTON, SOB DVT Prophylaxis: Yes - Physical Examination Vital Signs and I&O: Last Vital Signs Temp 98.3 F 08/29/16 08:00 Pulse 58 L 08/29/16 08:00 Resp 20 08/29/16 08:00 BP 156/78 08/29/16 08:00 Pulse Ox 95 08/29/16 08:00 Oxygen Pulse Oxygen Saturation 95 O2 Device Nasal Cannula Oxygen Flow Rate 4 Fraction of Inspired Oxygen ( FIO2) Intake & Output 08/26/16 08/27/16 08/28/16 08/29/16 23:59 23:59 23:59 23:59 Intake Total 5651 7003 1240 1338 Output Total 4100 4850 4400 Balance 1551 2153 -3160 1338 Patient's weight 83.733 kg 83.546 kg 84.187 kg 82.781 kg General: Alert, Oriented x3, No acute distress, Well appearing, Well nourished HEENT: Normal (Normocephalic, atraumatic;EOMI.Sclera white, Nares patent, without discharge or bleeding. No oropharyngeal lesions or erythema. Mucous membranes are dry.) Neck: Non-tender, Normal Trachea alignment, Normal inspection (No cervical lymphadenopathy. No supraclavicular lymphadenopathy.), No Masses palpable, Limited range of motion, Supple Lymphatics: Normal (No lymph node swelling or pain.) Respiratory: Accessory Muscle Use, Diminished. negative: Rhonchi, Wheezes Cardiovascular: Regular rate and rhythm (No bradycardia or tachycardia), Normal S1, No Gallops,Rubs/Murmurs, Normal S2, Good Pedal Pulses (DP pulses 2+ bilaterally) GI: Normal bowel sounds (normal active sounds), Soft (non-distended), Non tender , No hepatospenomegaly, No masses Extremities/Musculoskeletal: Cyanosis (TOES SL COOL). negative: Swelling, Edema , Clubbing Skin: Other (COOL FEET) Neurological: negative: Normal speech (DYSARTHRIC), Strength at 5/5 X4 ext, Cranial nerves 3-12 NL (GEN WEAKNESS) Psych/Mental Status: Agitated (SLIGHT) Lab/DI/Studies Reviewed: 08/28/16 02:10 08/29/16 03:10 Laboratory Results - last 24 hr 08/29/16 03:10 Sodium 130 L Potassium 3.9 Chloride 88 L Carbon Dioxide 38 H Anion Gap 8 BUN 15 Creatinine 0.60 L Estimated GFR (MDRD) > 60 Glucose 79 Calculated Osmolality 251 L Calcium 8.5 - Assessment (1) Pneumonia Acute J18.9 - PNEUMONIA, UNSPECIFIED ORGANISM Qualifiers: Pneumonia type: due to unspecified organism Laterality: bilateral Lung location: lower lobe of lung Qualified Code(s): J18.9 - Pneumonia, unspecified organism Comment/Plan: PNEUMONIA on was zosyn zithromax with probiotic which is now been switched to Augmentin and p.o. Zithromax. I feel that the pneumonia was contributing to his hyponatremia which is much better now. 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 Patient Does not want to go back to his previous environment where he states that he is unable to perform the activities of daily living. He states that he is unable to care for himself. For that reason I will get occupational and physical therapies to assist him. I have made a call to [facility] in [place] and spoken with Dr. Conley at the following phone number: [phone] who indicated that he would be happy to take him tomorrow if a bed is available. He requested that he not need any IV antibiotics and I assured him that he would not, except for the fact that he would need IVIG every 3 weeks. He told me that will be okay. (3) Hyponatremia Acute E87.1 - HYPO-OSMOLALITY AND HYPONATREMIA Comment/Plan: Improving sodium. Still feels very very weak. (4) Leukocytosis Resolved D72.829 - ELEVATED WHITE BLOOD CELL COUNT, UNSPECIFIED Qualifiers: Leukocytosis type: bandemia Qualified Code(s): D72.825 - Bandemia Comment/Plan: Etiology likely from pneumonia. Much improved 08/27/2016. (5) Hypokalemia Resolved E87.6 - HYPOKALEMIA Comment/Plan: Supplementation is taken place. Continue to monitor. (6) Hypomagnesemia Resolved E83.42 - HYPOMAGNESEMIA Comment/Plan: Has been supplemented. Case Care Discussed with: Patient, Nursing Staff, Resource Management Education/Counseling Given To: Patient Education/Counseling Given Regarding: Diagnosis Total Time: 39 min Critical Care: No Code: 34802 (12+)
[2016-08-29] MEDS: FERROUS SULFATE 324 MG TAB PO SCH ×2 (12:56→18:58)
[2016-08-29] MEDS: PROBIOTIC BLEND TAB PO SCH ×2 (12:56→18:58)
[2016-08-29] MEDS ORDERED: VARIBAR THIN 40% BARIUM 250 ML ONE (13:05)
[2016-08-29] MEDS: ATORVASTATIN 40 MG TAB PO SCH (18:58)
[2016-08-29] MEDS: ENOXAPARIN 40 MG/0.4 ML PFS SQ SCH (18:59)
[2016-08-29] MEDS: AMOXICILLIN/CLAVULANATE 875 MG TAB PO SCH (19:48)
[2016-08-29] MEDS: TEMAZEPAM 15 MG CAP PO PRN (22:08)
[2016-08-30] MEDS: ARTIFICIAL TEARS OPH SOLN 15 ML OU SCH ×6 (00:55→21:01)
[2016-08-30] MEDS: TRAMADOL HCL 50 MG TAB PO SCH ×3 (05:53→20:59)
[2016-08-30] MEDS: GABAPENTIN 400 MG CAP PO SCH ×3 (05:54→20:59)
[2016-08-30] MEDS: HydrOXYzine PAMOATE 25 MG/CAP CAP PO SCH ×2 (05:55→16:40)
[2016-08-30] MEDS: SIMETHICONE 80 MG TAB PO SCH ×3 (05:55→20:59)
[2016-08-30] MEDS: NYSTATIN POWDER 15 GM BOTTLE TOP SCH ×2 (05:55→17:03)
[2016-08-30 08:05] LABS: AUTOMATED MONOCYTE 6.3 % (3-10); AUTOMATED NEUTROPHIL 39.7 % (45-76); MPV 6.3 fL (7.4-10.4)
[2016-08-30 08:19] LABS: BLOOD UREA NITROGEN 16 MG/DL (9-20); CALCIUM 8.9 MG/DL (8.4-10.2); CALCULATED OSMOLALITY 256 MOs/Kg (270-290); CHLORIDE 88 mEq/L (98-107); GLUCOSE 92 mg/dL (70-99); SODIUM LEVEL 132 mEq/L (137-146)
[2016-08-30] MEDS: PENTOXIFYLLINE 400 MG TAB PO SCH ×3 (08:28→17:04)
[2016-08-30] MEDS: TAMSULOSIN HCL 0.4 MG CAP PO SCH (08:29)
[2016-08-30] MEDS: AMOXICILLIN/CLAVULANATE 875 MG TAB PO SCH ×2 (08:29→17:04)
[2016-08-30] MEDS: SERTRALINE HCL 100 MG TAB PO SCH (08:29)
[2016-08-30] MEDS: ATENOLOL 25 MG TAB PO SCH (08:29)
[2016-08-30] MEDS: FUROSEMIDE 40 MG/4 ML VIAL IV SCH (08:30)
[2016-08-30] MEDS: PETROLATUM TOP SCH ×2 (08:30→20:59)
[2016-08-30] MEDS: AZATHIOPRINE 50 MG TAB PO SCH ×2 (08:30→20:59)
[2016-08-30] MEDS: NYSTATIN CREAM 15 GM TUBE TOP SCH ×2 (08:31→21:02)
[2016-08-30] MEDS: CETIRIZINE HCL 10 MG TAB PO SCH (08:33)
[2016-08-30] MEDS: NS/KCl 20 mEq 1,000 ML IV SCH ×3 (08:39→23:28)
[2016-08-30] MEDS: PROBIOTIC BLEND TAB PO SCH ×2 (11:31→17:04)
[2016-08-30] MEDS: FERROUS SULFATE 324 MG TAB PO SCH ×2 (11:31→17:04)
[2016-08-30] MEDS: ENOXAPARIN 40 MG/0.4 ML PFS SQ SCH (17:04)
[2016-08-30] MEDS: ATORVASTATIN 40 MG TAB PO SCH (17:04)
--- NOTE | 2016-08-30 17:05 | GENMEDPROG ---
Chief Complaint: Slowly better. Remains chronically ill and likely need snf facility placement. He has been accepted at [facility] [place] and will be transferred tomorrow Notes Reviewed: Yes: Events from last night noted and discussed with Clinical Staff Current Medication List: Reviewed Currently: Denies: Cough, Wheezing, NEWTON, SOB DVT Prophylaxis: Yes - Physical Examination Vital Signs and I&O: Last Vital Signs Temp 98.6 F 08/30/16 14:05 Pulse 56 L 08/30/16 14:05 Resp 20 08/30/16 14:05 BP 112/61 08/30/16 14:05 Pulse Ox 96 08/30/16 14:05 Oxygen Pulse Oxygen Saturation 96 O2 Device Nasal Cannula Oxygen Flow Rate 3 Fraction of Inspired Oxygen ( FIO2) Intake & Output 08/27/16 08/28/16 08/29/16 08/30/16 23:59 23:59 23:59 23:59 Intake Total 7003 1240 2923 2174 Output Total 4850 4400 1425 2900 Balance 2153 -3160 1498 -726 Patient's weight 83.546 kg 84.187 kg 82.781 kg 82.1 kg General: Alert, Oriented x3, No acute distress, Well appearing, Well nourished HEENT: Normal (Normocephalic, atraumatic;EOMI.Sclera white, Nares patent, without discharge or bleeding. No oropharyngeal lesions or erythema. Mucous membranes are dry.), PERRLA, EOMI, Anicteric Sclera Neck: Non-tender, Normal Trachea alignment, Normal inspection (No cervical lymphadenopathy. No supraclavicular lymphadenopathy.), No Masses palpable, Limited range of motion, Supple Lymphatics: Normal (No lymph node swelling or pain.). negative: Adenopathy Respiratory: Accessory Muscle Use, Diminished. negative: Rhonchi, Wheezes Cardiovascular: Regular rate and rhythm (No bradycardia or tachycardia), Normal S1, No Gallops,Rubs/Murmurs, Normal S2, Good Pedal Pulses (DP pulses 2+ bilaterally) GI: Normal bowel sounds (normal active sounds), Soft (non-distended), Non tender , No hepatospenomegaly, No masses Extremities/Musculoskeletal: Cyanosis (TOES SL COOL). negative: Swelling, Edema , Clubbing Skin: Warm,Dry and Intact, Other (COOL FEET). negative: No rashes, No breakdown Neurological: Normal Steady Gait. negative: Normal speech (DYSARTHRIC), Strength at 5/5 X4 ext, Cranial nerves 3-12 NL (GEN WEAKNESS) Psych/Mental Status: Agitated (SLIGHT) Lab/DI/Studies Reviewed: Laboratory Results - last 24 hr 08/30/16 08/30/16 07:20 07:20 WBC 7.2 RBC 3.82 L Hgb 12.6 L Hct 37.3 L MCV 98 H MCH 33.1 H MCHC 33.9 RDW 14.5 Plt Count 142 MPV 6.3 L Neut % (Auto) 39.7 L Lymph % (Auto) 53.0 H [place] % (Auto) 6.3 Eos % (Auto) 1.0 Baso % (Auto) 0.0 Absolute Neuts (auto) 2.81 Absolute Lymphs (auto) 3.82 Sodium 132 L Potassium 4.1 Chloride 88 L Carbon Dioxide 37 H Anion Gap 11 BUN 16 Creatinine 0.50 L Estimated GFR (MDRD) > 60 Glucose 92 Calculated Osmolality 256 L Calcium 8.9 - Assessment (1) Pneumonia Acute J18.9 - PNEUMONIA, UNSPECIFIED ORGANISM Qualifiers: Pneumonia type: due to unspecified organism Laterality: bilateral Lung location: lower lobe of lung Qualified Code(s): J18.9 - Pneumonia, unspecified organism Comment/Plan: Steadily better. Changed to p.o. antibiotics. Transfer to [facility] due to declining overall health status and CIDP (2) Hyponatremia Acute E87.1 - HYPO-OSMOLALITY AND HYPONATREMIA Comment/Plan: Much improved. Now up to 132 (3) Leukocytosis Resolved D72.829 - ELEVATED WHITE BLOOD CELL COUNT, UNSPECIFIED Qualifiers: Leukocytosis type: bandemia Qualified Code(s): D72.825 - Bandemia Comment/Plan: Etiology likely from pneumonia. Much improved 08/27/2016. 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 Will need IVIG every 3 weeks. Appreciate Neurology evaluation (5) Metabolic encephalopathy Acute G93.41 - METABOLIC ENCEPHALOPATHY Comment/Plan: Overall much improved (6) Acute delirium Acute R41.0 - DISORIENTATION, UNSPECIFIED Comment/Plan: Markedly better than when I saw him earlier last week. Continue to treat multiple medical issues Case Care Discussed with: Patient, Consultants, Nursing Staff, Physical Therapy , Resource Management, Respiratory Therapy, [employer]
[2016-08-30] MEDS: OXYCODONE HCL 5 MG TABLET PO PRN ×2 (17:11→21:19)
[2016-08-31] MEDS: ARTIFICIAL TEARS OPH SOLN 15 ML OU SCH ×6 (02:09→20:14)
[2016-08-31] MEDS: NS/KCl 20 mEq 1,000 ML IV SCH ×2 (04:35→20:13)
[2016-08-31] MEDS: OXYCODONE HCL 5 MG TABLET PO PRN ×3 (04:35→16:53)
[2016-08-31] MEDS: GABAPENTIN 400 MG CAP PO SCH ×3 (06:06→20:13)
[2016-08-31] MEDS: SIMETHICONE 80 MG TAB PO SCH ×3 (06:06→20:12)
[2016-08-31] MEDS: TRAMADOL HCL 50 MG TAB PO SCH ×3 (06:07→20:12)
[2016-08-31] MEDS: NYSTATIN POWDER 15 GM BOTTLE TOP SCH ×2 (06:07→16:44)
[2016-08-31] MEDS: HydrOXYzine PAMOATE 25 MG/CAP CAP PO SCH ×2 (06:08→16:45)
[2016-08-31] MEDS: PENTOXIFYLLINE 400 MG TAB PO SCH ×3 (06:08→16:45)
--- NOTE | 2016-08-31 08:50 | PCM.DCS92 ---
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 Will need IVIG every 3 weeks. Appreciate Neurology evaluation. Previously had will been receiving, then stopped, and now has decided to resume treatments. (2) Pneumonia Acute J18.9 - PNEUMONIA, UNSPECIFIED ORGANISM due to unspecified organism bilateral lower lobe of lung J18.9 - Pneumonia, unspecified organism Comment: Resolved. Follow-up chest x-ray shows mild atelectasis but no clear infiltrate. Afebrile with normal white blood cell count. Overall clinically declining due to CIDP (3) Hyponatremia Acute E87.1 - HYPO-OSMOLALITY AND HYPONATREMIA Present on Admission: Yes Comment: Much improved. Now up to 132 (4) Leukocytosis Resolved D72.829 - ELEVATED WHITE BLOOD CELL COUNT, UNSPECIFIED Present on Admission: Yes bandemia D72.825 - Bandemia Comment: Etiology likely from pneumonia. Much improved 08/27/2016. (5) Metabolic encephalopathy Acute G93.41 - METABOLIC ENCEPHALOPATHY Present on Admission: Yes Comment: Overall much improved (6) Acute delirium Acute R41.0 - DISORIENTATION, UNSPECIFIED Present on Admission: Yes Comment: Markedly better than when I saw him earlier last week. Continue to treat multiple medical issues (7) Hematuria Acute R31.9 - HEMATURIA, UNSPECIFIED Present on Admission: Yes Comment: Mild. [place] to be related to Lee trauma from agitation and pulling at catheter. Hopefully catheter can be discontinued in the next couple of days as patient is more alert, interactive, and increasingly mobile. Discharge Disposition: Trans. to Other Hospital Discharge Condition: Serious Physician Follow up/Referrals: None,No Provider [NonStaff] - One Week Home Medications / New Prescriptions: New Amoxicillin/Clavulanate Potas. [Augmentin] 875 mg PO BIDWM #10 tablet Continue Tamsulosin HCl [Flomax] 0.4 mg PO 0700 Simvastatin 20 mg PO 0700 Simethicone [Mytab Gas] 160 mg PO 0700,1100,1600 Sertraline HCl 200 mg PO 0700 Pentoxifylline [Trental] 400 mg PO 0700,1100,1600 Lactulose 30 ml PO BID PRN PRN Reason: Constipation HydrOXYzine Pamoate (Anxiety) [Vistaril] 50 mg PO 0700,1600 Mineral Oil/Petrolatum,White [Hydrocerin Cream] 1 nuria TOP 0700,1600 Hydrochlorothiazide 12.5 mg PO 0700 Guaifenesin [Guaifenesin ER] 1,200 mg PO BID PRN PRN Reason: Cough Gabapentin 1,200 mg PO 0700,1500,2000 Methylcellulose [Fiber] 1,250 mg PO DAILY Furosemide 20 mg PO Q48H Ferrous Gluconate 324 mg PO 0700,1600 Famotidine 20 mg PO 1200,1900 CYANOCOBALAMIN (Vitamin B-12) [Vitamin B-12 (cyanocobalamin)] 1,000 mcg IM .MONTHLY Chlorhexidine Gluconate [Hibiclens] 240 ml TP 0700 Cetirizine HCl [Allergy Relief] 10 mg PO 0700 Bisacodyl [Laxative] 10 mg PO DAILY PRN PRN Reason: Constipation Azathioprine 100 mg PO 0700,1600 Atenolol 25 mg PO 0700 Aspirin (Enteric Coated) [Halfprin] 81 mg PO 0700 Artificial Tears 1 drops OU Q4 Tramadol HCl 100 mg PO 0700,1500,1900 Promethazine HCl 25 mg PO .[id number] PRN PRN Reason: Nausea/Vomiting Nystatin [Mycostatin] 1 applic TOP 0700,1600 Personal Cleans Wipes/Aloe 1 each TOP . DIR PRN PRN Reason: UNKNOWN Discontinued Sulfamethoxazole/Trimethoprim [Bactrim Ds Tablet] 1 tab PO BID O2 Device: Nasal Cannula Oxygen to be used after Discharge: Continuous Diet at Discharge: Heart Healthy Activity: As Tolerated Call Office For: Worsening Symptoms - DC Summary Notes Hospital Course Note:: Discharge summary on patient named TRUDY AVILEZ admitted to [facility] on 08/22/16 by Fly Esparza MD. Date of discharge is []. Mr. Avilez is a chronically ill 71-year-old white male inmate with a history of CIDP who presented to the hospital with altered mental status and agitation. He had previously been treated at [facility] with IVIG every 2-4 weeks but felt that it was not working and did not like being transferred back and forth to [facility] so he declined further treatment. [facility] in town since he stopped treatment. Admission he was altered and severely hyponatremic with a sodium of 115. He was restless, agitated and combative at times. He had an elevated white count of 19.3 and chest x-ray was concerning for basilar pneumonia. He was admitted to the hospital and started on IV fluids and IV antibiotics. His sodium has increased up to 132 and has been stable for several days. His white count has returned to normal and is currently 6. Because of his CIDP we had Neurology see him in consultation. As his cognitive status has stabilized he has agreed to resume treatments. We attempted to do an MRI initially but he was too agitated. We attempted later on and he refused. He has had significant decline in his functional status and requires total care at this time. His cognitive status has improved significantly and appears at baseline. He does agree to resume treatments full-time with IVIG. We have recommended transfer to [facility] in [place]. His case was discussed with Dr. Conley and he has been accepted in transfer. At the time of transfer his vitals are stable. He is afebrile with normal white blood cell count and hemoglobin of 13. He will require oxygen for the trip but his hypoxia is felt to be due to generalized muscle weakness more than acute illness. Total Time: 1 hour - Physical Exam Vital Signs: Last Vital Signs Temp 97.7 F 08/31/16 05:41 Pulse 63 08/31/16 05:41 Resp 18 08/31/16 05:41 BP 160/78 08/31/16 05:41 Pulse Ox 95 08/31/16 05:41 Oxygen Pulse Oxygen Saturation 95 O2 Device Nasal Cannula Oxygen Flow Rate 3 Fraction of Inspired Oxygen ( FIO2) Constitutional: No apparent distress, Alert. negative: Well appearing - HEENT Head: Normal Eye: Normal Oropharynx: Normal TMJ: Normal Nose: No Symptoms Reported - Respiratory/Cardiovascular Respiratory: Accessory Muscle Use, Diminished. negative: Rhonchi, Wheezes - GI Tenderness: Diffuse Rectal Exam: Deferred - Musculoskeletal Back: Normal, CVA Tenderness Extremities: Normal - Integumentary Skin: Warm, Dry Lymphatics: Normal (No lymph node swelling or pain.). negative: Adenopathy - Neurologic Memory Impaired: Normal Motor Function: Other (Generalized weakness with contractures) Cerebellar: Normal Mood Description: Normal, Flat Thought: Coherent Perception: Normal
[2016-08-31] MEDS: PETROLATUM TOP SCH ×2 (08:51→20:11)
[2016-08-31] MEDS: CETIRIZINE HCL 10 MG TAB PO SCH (08:52)
[2016-08-31] MEDS: AMOXICILLIN/CLAVULANATE 875 MG TAB PO SCH ×2 (08:52→16:46)
[2016-08-31] MEDS: SERTRALINE HCL 100 MG TAB PO SCH (08:52)
[2016-08-31] MEDS: TAMSULOSIN HCL 0.4 MG CAP PO SCH (08:53)
[2016-08-31] MEDS: FUROSEMIDE 40 MG/4 ML VIAL IV SCH (08:53)
[2016-08-31] MEDS: ATENOLOL 25 MG TAB PO SCH (08:53)
[2016-08-31] MEDS: AZATHIOPRINE 50 MG TAB PO SCH ×2 (08:53→20:13)
[2016-08-31] MEDS: NYSTATIN CREAM 15 GM TUBE TOP SCH ×2 (08:54→20:12)
[2016-08-31] MEDS: FERROUS SULFATE 324 MG TAB PO SCH ×2 (11:37→16:46)
[2016-08-31] MEDS: PROBIOTIC BLEND TAB PO SCH ×2 (11:37→16:46)
[2016-08-31] MEDS: ATORVASTATIN 40 MG TAB PO SCH (16:46)
[2016-08-31] MEDS: ENOXAPARIN 40 MG/0.4 ML PFS SQ SCH (16:46)
[2016-08-31] MEDS: TEMAZEPAM 15 MG CAP PO PRN (20:12)
[2016-09-01] MEDS: ARTIFICIAL TEARS OPH SOLN 15 ML OU SCH ×6 (00:49→22:19)
[2016-09-01] MEDS: NS/KCl 20 mEq 1,000 ML IV SCH ×4 (00:49→19:50)
[2016-09-01] MEDS: OXYCODONE HCL 5 MG TABLET PO PRN ×4 (02:46→22:15)
[2016-09-01] MEDS: SIMETHICONE 80 MG TAB PO SCH ×3 (05:52→22:18)
[2016-09-01] MEDS: TRAMADOL HCL 50 MG TAB PO SCH ×3 (05:52→22:15)
[2016-09-01] MEDS: GABAPENTIN 400 MG CAP PO SCH ×3 (05:52→22:19)
[2016-09-01] MEDS: HydrOXYzine PAMOATE 25 MG/CAP CAP PO SCH ×2 (05:53→14:32)
[2016-09-01] MEDS: NYSTATIN POWDER 15 GM BOTTLE TOP SCH ×3 (05:53→14:30)
[2016-09-01] MEDS: AMOXICILLIN/CLAVULANATE 875 MG TAB PO SCH ×2 (07:44→17:47)
[2016-09-01] MEDS: PENTOXIFYLLINE 400 MG TAB PO SCH ×3 (07:45→17:47)
[2016-09-01] MEDS: FUROSEMIDE 40 MG/4 ML VIAL IV SCH (07:48)
[2016-09-01] MEDS: SERTRALINE HCL 100 MG TAB PO SCH (07:50)
[2016-09-01] MEDS: TAMSULOSIN HCL 0.4 MG CAP PO SCH (07:50)
[2016-09-01] MEDS: AZATHIOPRINE 50 MG TAB PO SCH ×2 (07:51→22:17)
[2016-09-01] MEDS: ATENOLOL 25 MG TAB PO SCH (07:51)
[2016-09-01] MEDS: PETROLATUM TOP SCH ×2 (07:52→22:16)
[2016-09-01] MEDS: CETIRIZINE HCL 10 MG TAB PO SCH (07:53)
[2016-09-01] MEDS: NYSTATIN CREAM 15 GM TUBE TOP SCH ×2 (11:12→22:17)
[2016-09-01 11:25] VITALS: BMI 26.4
[2016-09-01] MEDS: FERROUS SULFATE 324 MG TAB PO SCH ×2 (13:24→17:47)
[2016-09-01] MEDS: PROBIOTIC BLEND TAB PO SCH ×2 (13:24→17:47)
--- NOTE | 2016-09-01 16:00 | GENMEDPROG ---
Chief Complaint: Awaiting transfer to [facility] and [place]. Still some hematuria and Lee catheter was irrigated and replaced. Some diarrhea earlier today but was C diff negative Notes Reviewed: Yes: Events from last night noted and discussed with Clinical Staff Current Medication List: Reviewed Currently: Denies: Cough, Wheezing, [place], SOB DVT Prophylaxis: Yes - Physical Examination Vital Signs and I&O: Last Vital Signs Temp 98.8 F 08/31/16 20:45 Pulse 61 08/31/16 20:45 Resp 20 08/31/16 20:45 BP 151/71 08/31/16 20:45 Pulse Ox 93 08/31/16 20:45 Oxygen Pulse Oxygen Saturation 93 O2 Device Nasal Cannula Oxygen Flow Rate 3 Fraction of Inspired Oxygen ( FIO2) Intake & Output 08/29/16 08/30/16 08/31/16 09/01/16 23:59 23:59 23:59 23:59 Intake Total 2923 2929 3201 986 Output Total 1425 3100 4050 2850 Balance 6836 -637 -952 -1871 Patient's weight 82.781 kg 82.1 kg 82.781 kg 83.631 kg General: Alert, Oriented x3, Mild distress. negative: Cooperative, Well appearing (Chronically ill-appearing) HEENT: Normal, PERRLA, EOMI, Anicteric Sclera Neck: Non-tender, Full range of motion, Normal Trachea alignment, Normal inspection. negative: JVD Lymphatics: Normal (No lymph node swelling or pain.). negative: Adenopathy Respiratory: Accessory Muscle Use, Diminished. negative: Rhonchi, Wheezes Cardiovascular: Regular rate and rhythm, No Gallops,Rubs/Murmurs GI: Normal bowel sounds, Soft, Non tender, No hepatospenomegaly Extremities/Musculoskeletal: Normal pulses, Other (Contracted and weak). 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 Awaiting bed. Will need IVIG every 3 weeks. Appreciate Neurology evaluation. Previously had will been receiving, then stopped, and now has decided to resume treatments. (2) Pneumonia Acute J18.9 - PNEUMONIA, UNSPECIFIED ORGANISM Qualifiers: Pneumonia type: due to unspecified organism Laterality: bilateral Lung location: lower lobe of lung Qualified Code(s): J18.9 - Pneumonia, unspecified organism Comment/Plan: Resolved. Follow-up chest x-ray shows mild atelectasis but no clear infiltrate. Afebrile with normal white blood cell count. Overall clinically declining due to CIDP (3) Hyponatremia Acute E87.1 - HYPO-OSMOLALITY AND HYPONATREMIA Comment/Plan: Much improved. Now up to 132 (4) Leukocytosis Resolved D72.829 - ELEVATED WHITE BLOOD CELL COUNT, UNSPECIFIED Qualifiers: Leukocytosis type: bandemia Qualified Code(s): D72.825 - Bandemia Comment/Plan: Etiology likely from pneumonia. Much improved 08/27/2016. (5) Metabolic encephalopathy Acute G93.41 - METABOLIC ENCEPHALOPATHY Comment/Plan: Overall much improved (6) Acute delirium Acute R41.0 - DISORIENTATION, UNSPECIFIED Comment/Plan: Markedly better than when I saw him earlier last week. Continue to treat multiple medical issues (7) Hematuria Acute R31.9 - HEMATURIA, UNSPECIFIED Comment/Plan: Mild. [place] to be related to Lee trauma from agitation and pulling at catheter. Catheter flushed and replaced. Case Care Discussed with: Patient, Nursing Staff, Physical Therapy, Resource Management, Respiratory Therapy, [employer]ipeline [employer] Inspector
[2016-09-01 17:07] VITALS: TEMP 98.8
[2016-09-01] MEDS: ATORVASTATIN 40 MG TAB PO SCH (17:47)
[2016-09-01] MEDS: ENOXAPARIN 40 MG/0.4 ML PFS SQ SCH (17:48)
[2016-09-02] MEDS: ARTIFICIAL TEARS OPH SOLN 15 ML OU SCH ×4 (02:44→14:03)
[2016-09-02] MEDS: OXYCODONE HCL 5 MG TABLET PO PRN ×2 (02:45→08:48)
[2016-09-02] MEDS: NS/KCl 20 mEq 1,000 ML IV SCH ×3 (02:50→14:04)
[2016-09-02] MEDS: SIMETHICONE 80 MG TAB PO SCH ×2 (06:17→14:03)
[2016-09-02] MEDS: TRAMADOL HCL 50 MG TAB PO SCH ×2 (06:17→14:03)
[2016-09-02] MEDS: GABAPENTIN 400 MG CAP PO SCH ×2 (06:18→14:03)
[2016-09-02] MEDS: HydrOXYzine PAMOATE 25 MG/CAP CAP PO SCH (06:18)
[2016-09-02] MEDS: NYSTATIN POWDER 15 GM BOTTLE TOP SCH (06:22)
[2016-09-02] MEDS: TAMSULOSIN HCL 0.4 MG CAP PO SCH (08:36)
[2016-09-02] MEDS: PETROLATUM TOP SCH (08:36)
[2016-09-02] MEDS: AMOXICILLIN/CLAVULANATE 875 MG TAB PO SCH (08:36)
[2016-09-02] MEDS: SERTRALINE HCL 100 MG TAB PO SCH (08:36)
[2016-09-02] MEDS: PENTOXIFYLLINE 400 MG TAB PO SCH ×2 (08:36→13:02)
[2016-09-02] MEDS: CETIRIZINE HCL 10 MG TAB PO SCH (08:36)
[2016-09-02] MEDS: FUROSEMIDE 40 MG/4 ML VIAL IV SCH (08:36)
[2016-09-02] MEDS: ATENOLOL 25 MG TAB PO SCH (08:36)
[2016-09-02] MEDS: NYSTATIN CREAM 15 GM TUBE TOP SCH (08:37)
[2016-09-02] MEDS: AZATHIOPRINE 50 MG TAB PO SCH (08:47)
--- NOTE | 2016-09-02 12:11 | PCM.DCS92 ---
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 No distress. Accepted at [facility] in [place]. Has bed today. Will need IVIG every 3 weeks. Appreciate Neurology evaluation. Previously had will been receiving, then stopped, and now has decided to resume treatments. (2) Pneumonia Acute J18.9 - PNEUMONIA, UNSPECIFIED ORGANISM Present on Admission: Yes due to unspecified organism bilateral lower lobe of lung J18.9 - Pneumonia, unspecified organism Comment: Resolved. Follow-up chest x-ray shows mild atelectasis but no clear infiltrate. Afebrile with normal white blood cell count. Overall clinically declining due to CIDP (3) Hyponatremia Acute E87.1 - HYPO-OSMOLALITY AND HYPONATREMIA Present on Admission: Yes Comment: Much improved. Now up to 132 (4) Leukocytosis Resolved D72.829 - ELEVATED WHITE BLOOD CELL COUNT, UNSPECIFIED Present on Admission: Yes bandemia D72.825 - Bandemia Comment: Etiology likely from pneumonia. Much improved 08/27/2016. (5) Metabolic encephalopathy Acute G93.41 - METABOLIC ENCEPHALOPATHY Present on Admission: Yes Comment: Overall much improved (6) Acute delirium Acute R41.0 - DISORIENTATION, UNSPECIFIED Present on Admission: Yes Comment: Markedly better than when I saw him earlier last week. Continue to treat multiple medical issues (7) Hematuria Acute R31.9 - HEMATURIA, UNSPECIFIED Present on Admission: Yes Comment: Mild. [place] to be related to Lee trauma from agitation and pulling at catheter. Catheter flushed and replaced. Discharge Disposition: Trans. to Other Hospital Discharge Condition: Improved Cognitive Discharge Status: Unimpaired Fuctional Discharge Status: Deconditioning, Ambulatory Dysfunction Physician Follow up/Referrals: None,No Provider [NonStaff] - One Week Home Medications / New Prescriptions: New Amoxicillin/Clavulanate Potas. [Augmentin] 875 mg PO BIDWM #10 tablet Continue Tamsulosin HCl [Flomax] 0.4 mg PO 0700 Simvastatin 20 mg PO 0700 Simethicone [Mytab Gas] 160 mg PO 0700,1100,1600 Sertraline HCl 200 mg PO 0700 Pentoxifylline [Trental] 400 mg PO 0700,1100,1600 Lactulose 30 ml PO BID PRN PRN Reason: Constipation HydrOXYzine Pamoate (Anxiety) [Vistaril] 50 mg PO 0700,1600 Mineral Oil/Petrolatum,White [Hydrocerin Cream] 1 nuria TOP 0700,1600 Hydrochlorothiazide 12.5 mg PO 0700 Guaifenesin [Guaifenesin ER] 1,200 mg PO BID PRN PRN Reason: Cough Gabapentin 1,200 mg PO 0700,1500,2000 Methylcellulose [Fiber] 1,250 mg PO DAILY Furosemide 20 mg PO Q48H Ferrous Gluconate 324 mg PO 0700,1600 Famotidine 20 mg PO 1200,1900 CYANOCOBALAMIN (Vitamin B-12) [Vitamin B-12 (cyanocobalamin)] 1,000 mcg IM .MONTHLY Chlorhexidine Gluconate [Hibiclens] 240 ml TP 0700 Cetirizine HCl [Allergy Relief] 10 mg PO 0700 Bisacodyl [Laxative] 10 mg PO DAILY PRN PRN Reason: Constipation Azathioprine 100 mg PO 0700,1600 Atenolol 25 mg PO 0700 Aspirin (Enteric Coated) [Halfprin] 81 mg PO 0700 Artificial Tears 1 drops OU Q4 Tramadol HCl 100 mg PO 0700,1500,1900 Promethazine HCl 25 mg PO .[id number] PRN PRN Reason: Nausea/Vomiting Nystatin [Mycostatin] 1 applic TOP 0700,1600 Personal Cleans Wipes/Aloe 1 each TOP . DIR PRN PRN Reason: UNKNOWN Discontinued Sulfamethoxazole/Trimethoprim [Bactrim Ds Tablet] 1 tab PO BID O2 Device: Nasal Cannula Oxygen to be used after Discharge: Continuous Diet at Discharge: Heart Healthy Activity: As Tolerated Call Office For: Worsening Symptoms - DC Summary Notes Hospital Course Note:: Discharge summary on patient named TRUDY COY admitted to [facility] on 08/22/16 by Fly Esparza MD. Date of discharge is []. Please see discharge summary dated August 31. No significant change in the last 2 days. Has been waiting bed at [facility]. Patient with CIDP admitted with pneumonia. Overall much improved but with declining functional status. Will need continued IV IG and supportive care. Has had mild hematuria and Lee catheter has remained in place due to poor mobility. Pneumonia has resolved and patient is up in chair. Initial cognition was poor but this has resolved to baseline. Stable for transfer Total Time: 45 minutes Wound Care Surgical Site: No - Physical Exam Vital Signs: Last Vital Signs Temp 98.0 F 09/02/16 05:22 Pulse 59 L 09/02/16 05:22 Resp 19 09/02/16 05:22 BP 131/64 09/02/16 05:22 Pulse Ox 93 09/02/16 05:22 Oxygen Pulse Oxygen Saturation 93 O2 Device Nasal Cannula Oxygen Flow Rate 3 Fraction of Inspired Oxygen ( FIO2) Constitutional: No apparent distress, Alert, Well nourished. negative: Well appearing - HEENT Head: Normal Eye: Normal Oropharynx: Normal TMJ: Normal Nose: No Symptoms Reported - Respiratory/Cardiovascular Respiratory: Accessory Muscle Use, Diminished. negative: Rhonchi, Wheezes - GI Auscultation: Normal Palpation: Normal Tenderness: Diffuse Rectal Exam: Deferred - Musculoskeletal Back: Normal, CVA Tenderness Extremities: Normal - Integumentary Skin: Warm, Dry Lymphatics: Normal (No lymph node swelling or pain.). negative: Adenopathy - Neurologic Memory Impaired: Normal Motor Function: Normal Cranial Nerve: Normal Cerebellar: Normal Mood Description: Normal, Flat Thought: Coherent Perception: Normal
[2016-09-02] MEDS: FERROUS SULFATE 324 MG TAB PO SCH (12:49)
[2016-09-02] MEDS: PROBIOTIC BLEND TAB PO SCH (12:49)
[2016-09-02 15:24] VITALS: BP 133/75; PULSE 94; TEMP 96.9
[2016-09-19] MEDS ORDERED: CYANOCOBALAMIN 1000 MCG/ML VIAL IM SCH (09:00)
== END 2016-09-02 15:31 | disposition other institution (70) | DRG 640 ==
LOC: ED 03:47 → ICU 06:01 → EEVIPCON 06:01 → PCU 12:11 → MPS3 08-29 11:55
PROVIDERS: ADMIT Internal Medicine; ATTEND Hospitalist
PROC: 4A033R1 Measurement of Arterial Saturation, Peripheral, Percutaneous Approach (ICD-10-PCS; principal; 2016-08-22)
DX: E87.1 Hypo-osmolality and hyponatremia (principal); J18.9 Pneumonia, unspecified organism; G93.41 Metabolic encephalopathy; G61.81 Chronic inflammatory demyelinating polyneuritis; S37.90XA Unspecified injury of unspecified urinary and pelvic organ, initial encounter; R13.10 Dysphagia, unspecified; Z99.81 Dependence on supplemental oxygen; X58.XXXA Exposure to other specified factors, initial encounter; Y92.239 Unspecified place in hospital as the place of occurrence of the external cause; R31.9 Hematuria, unspecified; Z53.29 Procedure and treatment not carried out because of patient's decision for other reasons; R09.02 Hypoxemia; I10 Essential (primary) hypertension; E78.00 Pure hypercholesterolemia, unspecified; I73.9 Peripheral vascular disease, unspecified; J45.909 Unspecified asthma, uncomplicated; J44.9 Chronic obstructive pulmonary disease, unspecified; K21.9 Gastro-esophageal reflux disease without esophagitis; E83.42 Hypomagnesemia; N40.0 Benign prostatic hyperplasia without lower urinary tract symptoms; M19.90 Unspecified osteoarthritis, unspecified site; M10.9 Gout, unspecified; D50.9 Iron deficiency anemia, unspecified; F32.9 Major depressive disorder, single episode, unspecified; F41.9 Anxiety disorder, unspecified; R19.7 Diarrhea, unspecified; Z79.82 Long term (current) use of aspirin; Z87.891 Personal history of nicotine dependence; Z99.3 Dependence on wheelchair
CPT/HCPCS: 36415; 36600; 51798; 70450; 71010; 71275; 74177; 80048; 80053; 80307; 81001; 82140; 82803; 83605; 83735; 83880; 84295; 84484; 85007; 85025; 85027; 85610; 85651; 85730; 87040; 87086; 87493; 87641; 93005; 93880; 94640; 96372; 96374; 97163; 97166; 99284; A9698; G0237; J0456; J1100; J1459; J1650; J1940; J2060; J2270; J2405; J2543; J3475; J3490; J7040; J7060; J7070; J7620